=== PATIENT | female | born 1935 | race Caucasian/White ===

== ENCOUNTER 2022-04-08 20:49 | Observation (INO) | payer MEDICARE ==
[~2022-04-08] VITALS: Ht 150 cm; Wt 65.8 kg
[2022-04-08] MEDS ORDERED: fentaNYL INJ 100 MCG/2 ML AMP IVP ONE (21:00)
[2022-04-08 21:11] LABS: BASOPHILS % (AUTO) 1 % (0-10); EOSINOPHILS # (AUTO) 0.3 10^3/uL (0.0-0.3); EOSINOPHILS % (AUTO) 5 % (0-10); HEMATOCRIT 36 % (35-52); HEMOGLOBIN 11.5 g/dL (11.5-16.0); LYMPHOCYTES # (AUTO) 1.9 10^3/uL (1.0-4.0); LYMPHOCYTES % (AUTO) 28 % (12-44); MEAN CORPUSCULAR HEMOGLOBIN 31 pg (25-34); MEAN CORPUSCULAR HGB CONC 32 g/dL (32-36); MEAN CORPUSCULAR VOLUME 97 fL (80-99); MEAN PLATELET VOLUME 9.8 fL (9.0-12.2); MONOCYTES # (AUTO) 0.7 10^3/uL (0.0-1.0); MONOCYTES % (AUTO) 10 % (0-12); NEUTROPHILS # (AUTO) 3.8 10^3/uL (1.8-7.8); NEUTROPHILS % (AUTO) 57 % (42-75); PLATELET COUNT 170 10^3/uL (130-400); WHITE BLOOD COUNT 6.6 10^3/uL (4.3-11.0)
[2022-04-08 21:22] LABS: CLARITY,URINE CLOUDY; COLOR,URINE YELLOW; GLUCOSE, URINE (UA) NEGATIVE (NEGATIVE); PROTEIN,URINE NEGATIVE (NEGATIVE)
[2022-04-08 21:23] LABS: BACTERIA,URINE FEW /HPF; BILIRUBIN,URINE NEGATIVE (NEGATIVE); KETONES,URINE NEGATIVE (NEGATIVE); LEUKOCYTE ESTERASE ,URINE 3+ (NEGATIVE); NITRITE,URINE NEGATIVE (NEGATIVE); WBC,URINE TNTC /HPF
[2022-04-08 21:40] LABS: ALBUMIN 3.7 GM/DL (3.2-4.5); BILIRUBIN,TOTAL 0.3 MG/DL (0.1-1.0); CALCIUM 10.1 MG/DL (8.5-10.1); CREATININE SERUM 1.82 MG/DL (0.60-1.30); POTASSIUM 3.8 MMOL/L (3.6-5.0); TOTAL PROTEIN 7.5 GM/DL (6.4-8.2)
[2022-04-08] MEDS ORDERED: LACTATED RINGERS 1,000 ML IV ONE (22:00)
--- NOTE | 2022-04-08 22:06 | Diagnostic Imaging Report ---
EXAMINATION: CT abdomen and pelvis without contrast. TECHNIQUE: Multiple contiguous axial images were obtained through the abdomen and pelvis without the use of intravenous contrast. All CT scans use one or more of the following dose optimizing techniques: automated exposure control, MA and/or KvP adjustment based on patient size and exam type or iterative reconstruction. HISTORY: Low abdominal pain COMPARISON: None available. FINDINGS: Lung bases: Bibasilar dependent atelectasis. Solid organs: The liver is normal. Multiple layering hyperdense stones within the gallbladder. There is no biliary ductal dilation. Pancreas is normal. Spleen is normal. Adrenal glands are normal. There is severe bilateral hydronephrosis and hydroureter to the level of the right lower quadrant urinary diversion. Bowel: Surgical changes of the small bowel without obstruction. There is a moderate amount of stool within the colon. Surgical changes from right lower quadrant urinary diversion. Peritoneum: There is no intraperitoneal free fluid or free air. No suspicious lymphadenopathy. Vasculature: Calcification of the aorta without aneurysm. Musculoskeletal: Degenerative changes of the spine without suspicious osseous lesion or compression fracture. Surgical changes of the right lower quadrant abdominal wall from ostomy and urinary diversion. Pelvis: The uterus and urinary bladder are surgically absent. IMPRESSION: 1. No acute abnormality in the abdomen or pelvis. 2. Severe bilateral hydronephrosis and hydroureter to the level of the right lower quadrant urinary diversion. No visualized obstructing stone. 3. Cholelithiasis. Dictated by: Dictated on workstation # [id number]
--- NOTE | 2022-04-08 22:33 | ED Abdominal Pain ---
General Chief Complaint: Abdominal/GI Problems Stated Complaint: ABD PAIN Nursing Triage Note: TO ED VIA [facility] FROM [facility] WITH C/O ABD PAIN. Source of Information: Patient, Senior Care Records Exam Limitations: No Limitations History of Present Illness Date Seen by Provider: Apr 08, 2022 Time Seen by Provider: 20:53 Initial Comments This 87-year-old woman presents to the emergency room via [facility] with complaints of lower abdominal pain. 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 She has had multiple urinary tract infections in the past several months that were treated at [facility]. She has not been seen at this hospital in many years. She has no vomiting, diarrhea, or constipation. Urostomy output has been plentiful. She is afebrile. She is experiencing waves of intense pain during my assessment. Her urologic procedures were performed at [facility]. Patient has been seeing Dr. Niko Pham at the [facility]. She anticipates transitioning care to Dr. ALBINA Burger but has not yet birdseed by him. Dr. Pahm is moving to the [facility] in [place]. Allergies and Home Medications Allergies Coded Allergies: hydrocodone (Verified Allergy, Unknown, 04/08/22) meperidine (Verified Allergy, Unknown, 04/08/22) phenazopyridine (Verified Allergy, Unknown, 04/08/22) pramipexole (Verified Allergy, Unknown, 04/08/22) propoxyphene (Verified Allergy, Unknown, 04/08/22) Patient Home Medication List Home Medication List Reviewed: Yes Review of Systems Review of Systems Constitutional: no symptoms reported EENTM: No Symptoms Reported Respiratory: No Symptoms Reported Cardiovascular: No Symptoms Reported Gastrointestinal: See HPI Genitourinary: See HPI Musculoskeletal: no symptoms reported Skin: no symptoms reported Psychiatric/Neurological: No Symptoms Reported Endocrine: No Symptoms Reported Past Kxrqswx-Qyczdp-Frgnfl Hx Patient Social History Tobacco Use?: No Substance use?: No Alcohol Use?: No Immunizations Up To Date Influenza Vaccine Up-to-Date: Yes; Up-to-Date Past Medical History Surgery/Hospitalization HX: UROSTOMY O2 AT 2L AT [facility] DM Surgeries: Yes (Urostomy and bladder resection) Bladder Surgery Respiratory: Yes (Uses supplemental oxygen at 2 L per nasal cannula) Cardiac: Yes Hypertension Neurological: Yes (Restless leg syndrome) : No Genitourinary: Yes Renal Failure (Chronic kidney disease) Gastrointestinal: No Musculoskeletal: No Endocrine: Yes Diabetes, Insulin dep HEENT: No Cancer: No Psychosocial: No Integumentary: No Physical Exam Vital Signs Vital Signs - First Documented 04/08/22 20:49 Temp 36.1 Pulse 59 Resp 16 B/P (MAP) 184/72 (109) Pulse Ox 90 O2 Delivery Room Air O2 Flow Rate 2.00 Capillary Refill : Less Than 3 Seconds Height/Weight/BMI Height: '" Weight: lbs. oz. kg; BMI Method: General Appearance: WD/WN, moderate distress HEENT: PERRL/EOMI, normal ENT inspection Neck: normal inspection Respiratory: lungs clear, normal breath sounds, no respiratory distress Cardiovascular: regular rate, rhythm, no edema, no murmur Gastrointestinal: normal bowel sounds, soft; No distended; tenderness (Across the lower abdomen), other (Urostomy intact and containing urine) Extremities: normal inspection, no pedal edema Neurologic/Psychiatric: no motor/sensory deficits, alert, normal mood/affect, oriented x 3 Skin: normal color, warm/dry Progress/Results/Core Measures Results/Orders Lab Results Laboratory Tests Test 04/08/22 21:00 04/08/22 21:04 Range/Units Urine Color YELLOW Urine Clarity CLOUDY Urine pH 6.0 5-9 Urine Specific Candor 1.020 1.016-1.022 Urine Protein NEGATIVE NEGATIVE Urine Glucose (UA) NEGATIVE NEGATIVE Urine Ketones NEGATIVE NEGATIVE Urine Nitrite NEGATIVE NEGATIVE Urine Bilirubin NEGATIVE NEGATIVE Urine Urobilinogen 0.2 < = 1.0 MG/DL Urine Leukocyte Esterase 3+ H NEGATIVE Urine RBC (Auto) 1+ H NEGATIVE Urine RBC 10-25 H /HPF Urine WBC TNTC H /HPF Urine Squamous Epithelial Cells NONE /HPF Urine Crystals NONE /LPF Urine Bacteria FEW H /HPF Urine Casts NONE /LPF Urine Mucus NEGATIVE /LPF Urine Culture Indicated YES White Blood Count 6.6 4.3-11.0 10^3/uL Red Blood Count 3.73 L 3.80-5.11 10^6/uL Hemoglobin 11.5 11.5-16.0 g/dL Hematocrit 36 35-52 % Mean Corpuscular Volume 97 80-99 fL Mean Corpuscular Hemoglobin 31 25-34 pg Mean Corpuscular Hemoglobin Concent 32 32-36 g/dL Red Cell Distribution Width 14.2 10.0-14.5 % Platelet Count 170 130-400 10^3/uL Mean Platelet Volume 9.8 9.0-12.2 fL Immature Granulocyte % (Auto) 0 % Neutrophils (%) (Auto) 57 42-75 % Lymphocytes (%) (Auto) 28 12-44 % Monocytes (%) (Auto) 10 0-12 % Eosinophils (%) (Auto) 5 0-10 % Basophils (%) (Auto) 1 0-10 % Neutrophils # (Auto) 3.8 1.8-7.8 10^3/uL Lymphocytes # (Auto) 1.9 1.0-4.0 10^3/uL Monocytes # (Auto) 0.7 0.0-1.0 10^3/uL Eosinophils # (Auto) 0.3 0.0-0.3 10^3/uL Basophils # (Auto) 0.0 0.0-0.1 10^3/uL Immature Granulocyte # (Auto) 0.0 0.0-0.1 10^3/uL Sodium Level 134 L 135-145 MMOL/L Potassium Level 3.8 3.6-5.0 MMOL/L Chloride Level 101 98-107 MMOL/L Carbon Dioxide Level 22 21-32 MMOL/L Anion Gap 11 5-14 MMOL/L Blood Urea Nitrogen 38 H 7-18 MG/DL Creatinine 1.82 H 0.60-1.30 MG/DL Estimat Glomerular Filtration Rate 27 BUN/Creatinine Ratio 21 Glucose Level 250 H 70-105 MG/DL Calcium Level 10.1 8.5-10.1 MG/DL Corrected Calcium 10.3 H 8.5-10.1 MG/DL Total Bilirubin 0.3 0.1-1.0 MG/DL Aspartate Amino Transf (AST/SGOT) 11 5-34 U/L Alanine Aminotransferase (ALT/SGPT) 15 0-55 U/L Alkaline Phosphatase 138 H 40-136 U/L C-Reactive Protein High Sensitivity 1.99 H 0.00-0.50 MG/DL Total Protein 7.5 6.4-8.2 GM/DL Albumin 3.7 3.2-4.5 GM/DL Lipase 16 8-78 U/L Thyroid Stimulating Hormone (TSH) 3.44 0.35-4.94 UIU/ML Free Thyroxine 1.01 0.70-1.48 NG/DL My Orders Orders - AFUA WASHBURN MD Cbc With Automated Diff (04/08/22 20:55) Comprehensive Metabolic Panel (04/08/22 20:55) Hs C Reactive Protein (04/08/22 20:55) Lipase (04/08/22 20:55) Ed Iv/Invasive Line Start (04/08/22 20:55) Fentanyl Inj (Sublimaze Injection) (04/08/22 21:00) Ua Culture If Indicated (04/08/22 20:58) Urine Culture (04/08/22 21:00) O2 (04/08/22 21:42) Ct Abdomen/Pelvis Wo (04/08/22 21:45) Carvedilol Tablet (Coreg Tablet) (04/08/22 22:54) Gabapentin Capsule/Tablet (Neurontin Cap (04/08/22 23:00) Ropinirole Tablet (Requip Tablet) (04/08/22 23:00) Ciprofloxacin Iv 400mg/200ml (Cipro Iv S (04/08/22 23:00) Medications Given in ED Current Medications Medications Dose Ordered Sig/Gldays Route Start Time Stop Time Status Last Admin Dose Admin Ciprofloxacin/ Dextrose 200 ml @ 200 mls/hr ONCE ONCE IV 04/08/22 23:00 04/08/22 23:59 DC 04/08/22 23:24 200 MLS/HR Fentanyl Citrate 50 mcg ONCE ONCE IVP 04/08/22 21:00 04/08/22 21:01 DC 04/08/22 21:07 50 MCG Gabapentin 300 mg ONCE ONCE PO 04/08/22 23:00 04/08/22 23:01 DC 04/08/22 23:25 300 MG Ropinirole HCl 1 mg ONCE ONCE PO 04/08/22 23:00 04/08/22 23:01 DC 04/08/22 23:26 1 MG Vital Signs/I&O 04/08/22 04/08/22 04/08/22 20:49 20:49 21:04 Temp 36.1 Pulse 59 Resp 16 B/P (MAP) 184/72 (109) Pulse Ox 90 O2 Delivery Room Air Nasal Cannula Nasal Cannula O2 Flow Rate 2.00 2.00 Blood Pressure Mean: 109 Progress Progress Note : Time: 23:08 Progress Note Patient was treated with fentanyl initially and she is pain-free at this time. CT revealed no definite acute pathology. See report for chronic pathology. She has renal failure with unknown baseline. She is being hydrated with normal sa line 500 mL bolus now followed by slightly higher than maintenance fluids overnight. Patient reports Cipro has been used with good success in the past. We will start with Cipro as initial antibiotic therapy here based on successful treatment of recent UTIs. Patient's baseline creatinine is unknown as she has not been seen here in many years. I have written to obtain records from [facility] for her mild recent admission there. Patient's alf paperwork lists Dr. Emerson Burger as her primary care provider, but she has never actually been seen by him. She has been seen and managed by Dr. Niko Pham at [facility]. She plans to eventually transition to Dr. Burger as it Dr. Pham is moving to a [facility] in [place]. Patient has not received her blood pressure medication yet this evening. It appears that she takes carvedilol which has been ordered. Due to her uncontrolled blood pressure, I am also adding thyroid labs to her work-up. Diagnostic Imaging Diagonstic Imaging: CT Plain Films/CT/US/NM/MRI: abdomen, pelvis Comments CT abdomen pelvis viewed by me and report reviewed. See report below: NAME: CATRACHITO LECHUGA [facility] REC#: [id number] PT STATUS: REG ER : 1935 PHYSICIAN: AFUA WASHBURN MD ADMIT DATE: 04/08/22/ER Signed Date of Exam:04/08/22 CT ABDOMEN/PELVIS WO EXAMINATION: CT abdomen and pelvis without contrast. TECHNIQUE: Multiple contiguous axial images were obtained through the abdomen and pelvis without the use of intravenous contrast. All CT scans use one or more of the following dose optimizing techniques: automated exposure control, MA and/or KvP adjustment based on patient size and exam type or iterative reconstruction. HISTORY: Low abdominal pain COMPARISON: None available. FINDINGS: Lung bases: Bibasilar dependent atelectasis. Solid organs: The liver is normal. Multiple layering hyperdense stones within the gallbladder. There is no biliary ductal dilation. Pancreas is normal. Spleen is normal. Adrenal glands are normal. There is severe bilateral hydronephrosis and hydroureter to the level of the right lower quadrant urinary diversion. Bowel: Surgical changes of the small bowel without obstruction. There is a moderate amount of stool within the colon. Surgical changes from right lower quadrant urinary diversion. Peritoneum: There is no intraperitoneal free fluid or free air. No suspicious lymphadenopathy. Vasculature: Calcification of the aorta without aneurysm. Musculoskeletal: Degenerative changes of the spine without suspicious osseous lesion or compression fracture. Surgical changes of the right lower quadrant abdominal wall from ostomy and urinary diversion. Pelvis: The uterus and urinary bladder are surgically absent. IMPRESSION: 1. No acute abnormality in the abdomen or pelvis. 2. Severe bilateral hydronephrosis and hydroureter to the level of the right lower quadrant urinary diversion. No visualized obstructing stone. 3. Cholelithiasis. Dictated by: Dictated on workstation # [id number] Dict: 04/08/222201 Trans: 04/08/222206 [facility] [id number] Interpreted by: JOANIE RUSSELL DO Electronically signed by: JOANIE RUSSELL DO 04/08/222206 Departure Communication (Admissions) Time/Spoke to Admitting Phy: 23:00 Dr. Mejia Impression Primary Impression: Urinary tract infection Qualified Codes: N39.0 - Urinary tract infection, site not specified Additional Impressions: Lower abdominal pain Renal failure Qualified Codes: N19 - Unspecified kidney failure Uncontrolled hypertension Disposition: ADMITTED INPATIENT Condition: Improved Admissions Decision to Admit Reason: Admit from ER (General) Decision to Admit/Date: Apr 08, 2022 Time/Decision to Admit Time: 23:00 Copy Copies To 1: [facility] Copies To 2: SHON BURGER MD, JOSHUA T MD Apr 08, 2022 22:33
[2022-04-08] MEDS ORDERED: rOPINIRole 1 MG (REQUIP) TABLET PO ONE (23:00)
[2022-04-08] MEDS ORDERED: GABAPENTIN 300 MG (NEURONTIN) CAP PO ONE (23:00)
[2022-04-08] MEDS ORDERED: CIPROFLOXACIN IV 400MG/200ML 200 ML IV ONE (23:00)
[2022-04-08] MEDS ORDERED: NS IV 500 ML 500 ML IV ONE (23:15)
[2022-04-09] VITALS (9 sets, daily range): BP systolic 141–205; BP diastolic 51–69
[2022-04-09 01:18] LABS: FREE T4 (FREE THYROXINE) 1.01 NG/DL (0.70-1.48)
[2022-04-09] MEDS ORDERED: fentaNYL INJ 100 MCG/2 ML AMP IV PRN (01:30)
[2022-04-09] MEDS ORDERED: ONDANSETRON 4 MG/2 ML (SDV) Z0FRAN IV PRN (01:30)
[2022-04-09] MEDS: LACTATED RINGERS 1,000 ML IV SCH ×4 (01:34→19:23)
[2022-04-09] MEDS: inSUlin ASPART (NovoLOG) 1 UNIT/0.01 ML (CHARGE PER UNIT) SC SCH ×4 (06:52→21:08)
[2022-04-09 07:05] LABS: BASOPHILS % (AUTO) 0 % (0-10); EOSINOPHILS # (AUTO) 0.2 10^3/uL (0.0-0.3); EOSINOPHILS % (AUTO) 4 % (0-10); HEMATOCRIT 34 % (35-52); LYMPHOCYTES # (AUTO) 1.5 10^3/uL (1.0-4.0); LYMPHOCYTES % (AUTO) 30 % (12-44); MEAN CORPUSCULAR HEMOGLOBIN 31 pg (25-34); MEAN CORPUSCULAR HGB CONC 32 g/dL (32-36); MEAN CORPUSCULAR VOLUME 97 fL (80-99); MEAN PLATELET VOLUME 9.8 fL (9.0-12.2); MONOCYTES # (AUTO) 0.5 10^3/uL (0.0-1.0); MONOCYTES % (AUTO) 9 % (0-12); NEUTROPHILS # (AUTO) 2.8 10^3/uL (1.8-7.8); NEUTROPHILS % (AUTO) 56 % (42-75); PLATELET COUNT 155 10^3/uL (130-400)
[2022-04-09 07:22] LABS: CALCIUM 9.5 MG/DL (8.5-10.1); CREATININE SERUM 1.36 MG/DL (0.60-1.30); POTASSIUM 3.8 MMOL/L (3.6-5.0)
--- NOTE | 2022-04-09 07:58 | History & Physical-Hospitalist ---
History of Present Illness HPI/Chief Complaint Chief complaint: UTI with weakness HPI: This is a 87-year-old female who lives at [facility] and PCP is apparently Dr. Huffman and not [facility] who presented to the ER with severe weakness found to have UTI and dehydration so placed in observation status with empiric IV antibiotics and monitoring closely. is at the bedside. Restarted all home meds. PT and OT consulted and she is walking pretty well with her walker and assistance. Advance diet to regular. Source: patient, family Exam Limitations: clinical condition Date Seen 04/09/22 Time Seen by a Provider: 11:30 Attending Physician Artie Pham MD PCP Admitting Physician: Lauren Mejia DO Attending Physician: Lauren Mejia DO Referring Physician Date of Admission Apr 08, 2022 at 23:00 Home Medications & Allergies Home Medications Reviewed patient Home Medication Reconciliation performed by pharmacy medication reconciliations environmental sampling technician and/or nursing. Patients Allergies have been reviewed. Allergies Allergies Coded Allergies hydrocodone (Verified Allergy, Unknown, 04/08/22) meperidine (Verified Allergy, Unknown, 04/08/22) phenazopyridine (Verified Allergy, Unknown, 04/08/22) pramipexole (Verified Allergy, Unknown, 04/08/22) propoxyphene (Verified Allergy, Unknown, 04/08/22) Past Hspfvkg-Wdyzxt-Ycyful Hx Patient Social History Marrital Status: Employed/Student: retired Tobacco Use?: No Smoking Status: Unknown if Ever Smoked Smokeless Tobacco Frequency: Unknown if Ever Used Use of E-Cig and/or Vaping dev: No Substance use?: No Alcohol Use?: No Pt feels they are or have been: Unable to obtain Current Status status: Unable to obtain status: Unable to obtain Advance Directives: Unable to obtain Communicates: Verbally Primary Language: Mongolian Preferred Spoken Language: Mongolian Is interpretation needed?: No Sensory deficits: Vision impairment Past Medical History Surgeries: Bladder Surgery Atrial Fibrillation, High Cholesterol, Hypertension Dementia Renal Failure (Chronic kidney disease) Diabetes, Insulin dep Review of Systems Constitutional: see HPI, dizziness, malaise, weakness EENTM: no symptoms reported Respiratory: no symptoms reported Cardiovascular: no symptoms reported Gastrointestinal: no symptoms reported Genitourinary: no symptoms reported Musculoskeletal: back pain Skin: no symptoms reported Psychiatric/Neurological: No Symptoms Reported All Other Systems Reviewed Negative Unless Noted: Yes Physical Exam Physical Exam Vital Signs Vital Signs - First Documented 04/08/22 20:49 Temp 36.1 Pulse 59 Resp 16 B/P (MAP) 184/72 (109) Pulse Ox 90 O2 Delivery Room Air O2 Flow Rate 2.00 Capillary Refill : Less Than 3 Seconds Height, Weight, BMI Height: '" Weight: lbs. oz. kg; BMI Method: General Appearance: No Apparent Distress, Chronically ill Eyes: Right Eye Normal Inspection, Right Eye PERRL HEENT: PERRL/EOMI, Normal ENT Inspection, Pharynx Normal, Moist Mucous Membranes Neck: Full Range of Motion, Normal Inspection, Non Tender Respiratory: Chest Non Tender, Lungs Clear, Normal Breath Sounds, No Accessory Muscle Use, No Respiratory Distress Cardiovascular: Regular Rate, Rhythm, No Edema, No Gallop, No JVD, No Murmur, Normal Peripheral Pulses Gastrointestinal: Normal Bowel Sounds, No Organomegaly, No Pulsatile Mass, Non Tender, Soft Back: Normal Inspection, No CVA Tenderness, No Vertebral Tenderness Extremity: Normal Capillary Refill, Normal Inspection, Normal Range of Motion, Non Tender, No Calf Tenderness, No Pedal Edema Neurologic/Psychiatric: Alert, Oriented x3, No Motor/Sensory Deficits, Normal Mood/Affect, coil placer II-XII Norm as Tested, Abnormal Gait, Depressed Affect, Disoriented, Motor Weakness (Generalized) Skin: Normal Color, Warm/Dry Lymphatic: No Adenopathy Results Results/Procedures Labs Laboratory Tests 04/08/22 21:04 04/09/22 06:15 Patient resulted labs reviewed. Assessment/Plan Admission Diagnosis Assessment: Weakness UTI Dehydration Acute kidney injury Atrial fibrillation Debility Advanced age Diabetes Atrial fibrillation? Hypertension Fall risk Plan: Home meds IV fluids IV antibiotics Supportive care Admission Status: Observation Diagnosis/Problems Diagnosis/Problems (1) Urinary tract infection Status: Acute Qualifiers: Urinary tract infection type: site unspecified Hematuria presence: without hematuria Qualified Codes: N39.0 - Urinary tract infection, site not specified (2) Renal failure Status: Acute Qualifiers: Renal failure chronicity: unspecified chronicity Qualified Codes: N19 - Unspecified kidney failure (3) Uncontrolled hypertension Status: Acute LAUREN MEJIA DO Apr 09, 2022 07:58
[2022-04-09] MEDS ORDERED: MELATONIN 3 MG TABLET PO PRN (11:45)
[2022-04-09] MEDS ORDERED: DOCUSATE SODIUM 100 MG (COLACE) CAP PO PRN (11:45)
[2022-04-09] MEDS ORDERED: diphenhydrAMINE 25 MG TAB (BENADRYL) PO PRN (11:45)
[2022-04-09] MEDS ORDERED: ONDANSETRON 4 MG (ZOFRAN) ORAL DISSOLVE TAB PO PRN (11:45)
[2022-04-09] MEDS ORDERED: BISACODYL 10 MG SUPP (DULCOLAX) PR PRN (11:45)
[2022-04-09] MEDS ORDERED: LOPERAMIDE 2 MG (IMODIUM) TABLET PO PRN (11:45)
[2022-04-09] MEDS ORDERED: ONDANSETRON 4 MG/2 ML (SDV) Z0FRAN IVP PRN (11:45)
[2022-04-09] MEDS ORDERED: ALPRAZolam 0.25 MG (XANAX) TAB PO PRN (11:45)
[2022-04-09] MEDS ORDERED: MENTHOL/ZINC OXIDE (CALMOSEPTINE) 113 GM TUBE TP PRN (11:45)
[2022-04-09] MEDS ORDERED: LACTULOSE SYRUP 10GM/15ML (ENULOSE) 30ML UDC PO PRN (11:45)
[2022-04-09] MEDS ORDERED: CALCIUM CARBONATE 500 MG (TUMS) TAB.CHEW PO PRN (11:45)
--- NOTE | 2022-04-09 12:33 | Physical Therapy Evaluation ---
PT Evaluation-General Medical Diagnosis Admission Date Apr 08, 2022 at 23:00 Medical Diagnosis: abdominal pain Onset Date: Apr 08, 2022 Therapy Diagnosis Therapy Diagnosis: mobility deficits Precautions Precautions/Isolations: Fall Prevention, Standard Precautions Weight Bear Status Right Lower Extremity: Right Full Weight Bearing Left Lower Extremity: Left Full Weight Bearing Referral Physician: Roberto Reason for Referral: Evaluation/Treatment Medical History Pertinent Medical History: DM, HTN Additional Medical History renal failure, urostomy, bladder resection Current History ER via EMS from [facility] with c/o abdominal pain. Reviewed History: Yes Social History Home: Assisted Living Current Living Status: Significant Other Entry Into Home: Level Entry Prior Prior Level of Function SCALE: Activities may be completed with or without assistive devices. 7-Shmussnbax-ugsbvar completes the activity by him/herself with no assistance from a helper. 5-Set-up or Clean-up Assistance-helper sets up or cleans up; patient completes a ctivity. Slater assists only prior to or following the activity. 4-Supervision or Touching Assistance-helper provides verbal cues and/or touching/steadying and/or contact guard assistance as patient completes activity. Assistance may be provided throughout the activity or intermittently. 3-Partial/Moderate Assistance-helper does LESS THAN HALF the effort. Slater lifts, holds or supports trunk or limbs, but provides less than half the effort. 2-Substantial/Maximal Assistance-helper does MORE THAN HALF the effort. Slater lifts or holds trunk or limbs and provides more than half the effort. 2-Qxyhtdcla-xnzvob does ALL the effort. Patient does none of the effort to complete the activity. Or, the assistance of 2 or more helpers is required for the patient to complete the activity. If activity was not attempted, code reason: 7-Patient Refused. 9-Not Applicable-not attempted and the patient did not perform the activity before the current illness, exacerbation or injury. 10-Not Attempted due to Environmental Limitations-(lack of equipment, weather restraints, etc.). 88-Not Attempted due to Medical Conditions or Safety Concerns. Bed Mobility: 6 Transfers (B,C,W/C): 6 Gait: 6 Indoor Mobility (Ambulation): Independent Prior Devices Use: Walker pt. states she has a walker but doesn't typically use it. States she frequently pushes around her in his manual w/c. PT Evaluation-Current Subjective Pt. in bed, states she doesn't think there will be anything wrong with her mobility. She denies pain. Pt/Family Goals [facility] Objective Patient Orientation: Person, Place, Time, Situation Attachments: Oxygen, IV urostomy ROM/Strength ROM Upper Extremities WNL ROM Lower Extremities WNL Strength Upper Extremities WNL Strength Lower Extremities Grossly 5/5 Integumentary/Posture Integumentary see nursing notes Bowel Incontinence: No Neuromuscular (Tone, Coordination, Reflexes) kyphotic posture Sensory Vision: Functional Hearing: Functional Sensation Right Upper Extremit: Intact Sensation Left Upper Extremity: Intact Sensation Right Lower Extremit: Intact Sensation Left Lower Extremity: Intact Transfers Sit to Lying (QC): 6 Lying to Sitting/Side of Bed(Q: 6 Sit to Stand (QC): 6 Gait Does the Patient Walk?: Yes Mode of Locomotion: Walk Anticipated Mode of Locomotion: Walk Walk 10 feet (QC): 6 Walk 50 ft with 2 Turns(QC): 6 Distance: 100 ft Gait Assistive Device: FWW Comments/Gait Description pt. is (I) with use of FWW, therapist assist with IV pole only Balance Sitting Static: Good Sitting Dynamic: Good Standing Static: Good Standing Dynamic: Good Assessment/Needs Pt. is an 87 y.o. female who presented to ED with abdominal pain. Pt. is currently (I) with all transfers and steady with ambulation using a FWW. At this time, patient and therapist do not feel additional skilled PT to warranted at this time. Pt. returned to bed with call light and all needs met. Rehab Potential: Good PT Short Term Goals Short Term Goals Time Frame: Apr 09, 2022 Sit to lyin Lying to sitting on side of be: 6 Sit to stand: 6 Walk 10 feet: 6 Walk 50 feet with two turns: 6 PT Plan Treatment/Plan Treatment Plan: Discontinue PT, goals met Treatment Duration: Apr 09, 2022 Frequency: Patient and/or Family Agrees t: Yes evaluation and discharge Time Time In: 1200 Time Out: 1215 DATE: Apr 09, 2022 Total Billed Treatment Time: 15 Total Billed Treatment 1, [facility] 15' KARTIK RAY PT Apr 09, 2022 12:32
[2022-04-09] MEDS ORDERED: ALLO100T PO (13:04)
[2022-04-09] MEDS ORDERED: AMIO100T4 PO (13:06)
[2022-04-09] MEDS ORDERED: ASPI-999 PO (13:07)
[2022-04-09] MEDS ORDERED: ATOR20TA66 PO (13:08)
[2022-04-09] MEDS ORDERED: CARV12.52 PO ×2 (13:09→13:11)
[2022-04-09] MEDS ORDERED: DULO20CA19 PO (13:11)
[2022-04-09] MEDS ORDERED: CLOP75TA28 PO (13:11)
[2022-04-09] MEDS ORDERED: FERR325T18 PO (13:12)
[2022-04-09] MEDS ORDERED: FURO-125 PO (13:13)
[2022-04-09] MEDS ORDERED: MELA1TAB20 PO (13:24)
[2022-04-09] MEDS ORDERED: LEVO112C4 PO (13:24)
[2022-04-09] MEDS ORDERED: ISOS60TA63 PO (13:24)
[2022-04-09] MEDS ORDERED: GLIP5TAB13 PO (13:24)
[2022-04-09] MEDS ORDERED: ROPI2TAB28 PO (13:24)
[2022-04-09] MEDS ORDERED: INSU100V5 SQ (13:24)
[2022-04-09] MEDS ORDERED: GABA-490 PO (13:24)
[2022-04-09] MEDS ORDERED: TRAM50TA3 PO (13:24)
[2022-04-09] MEDS ORDERED: amLODIPine 5 MG (NORVASC) TAB PO NR (16:00)
[2022-04-09] MEDS: GABAPENTIN 400 MG (NEURONTIN) CAP PO SCH (19:15)
[2022-04-09] MEDS: rOPINIRole 1 MG (REQUIP) TABLET PO SCH (19:21)
[2022-04-09] MEDS: ENOXAPARIN INJECTION 30 MG/0.3 ML SYR SC SCH (19:22)
[2022-04-09] MEDS: DULoxetine 20 MG (CYMBALTA) CAP PO SCH (19:22)
[2022-04-09] MEDS ORDERED: CIPROFLOXACIN 400 MG/D5W 200 ML (PRE-MIX) IV SCH (21:00)
[2022-04-09] MEDS: polyethylene glycoL POWDER 17 GM (MIRALAX) PACK PO SCH (21:04)
[2022-04-09] MEDS: SENNA W/DOCUSATE (SENOKOT S) TABLET PO SCH (21:04)
[2022-04-10] MEDS: ACETAMINOPHEN 325 MG TABLET PO PRN (01:12)
[2022-04-10 04:28] VITALS: BP 164/50
[2022-04-10 05:47] LABS: BASOPHILS % (AUTO) 1 % (0-10); EOSINOPHILS # (AUTO) 0.3 10^3/uL (0.0-0.3); EOSINOPHILS % (AUTO) 6 % (0-10); HEMATOCRIT 35 % (35-52); LYMPHOCYTES # (AUTO) 1.5 10^3/uL (1.0-4.0); LYMPHOCYTES % (AUTO) 36 % (12-44); MEAN CORPUSCULAR HEMOGLOBIN 31 pg (25-34); MEAN CORPUSCULAR HGB CONC 31 g/dL (32-36); MEAN CORPUSCULAR VOLUME 98 fL (80-99); MONOCYTES # (AUTO) 0.4 10^3/uL (0.0-1.0); MONOCYTES % (AUTO) 10 % (0-12); NEUTROPHILS % (AUTO) 47 % (42-75); PLATELET COUNT 140 10^3/uL (130-400); WHITE BLOOD COUNT 4.1 10^3/uL (4.3-11.0)
--- NOTE | 2022-04-10 06:04 | Progress Note - Hospitalist ---
Subjective HPI/CC On Admission Date Seen by Provider: Apr 10, 2022 Time Seen by Provider: 11:00 Chief complaint: UTI with weakness HPI: This is a 87-year-old female who lives at [facility] and PCP is apparently Dr. Huffman and not [facility] who presented to the ER with severe weakness found to have UTI and dehydration so placed in observation status with empiric IV antibiotics and monitoring closely. is at the bedside. Restarted all home meds. PT and OT consulted and she is walking pretty well with her walk er and assistance. Advance diet to regular. Subjective/Events-last exam Patient doing well Improved Still weak Check meds and labs Wants to go home soon Review of Systems General: Fatigue, Malaise Objective Exam Vital Signs Vital Signs Date Time Temp Pulse Resp B/P (MAP) Pulse Ox O2 Delivery O2 Flow Rate FiO2 04/10/22 12:00 36.0 57 16 179/65 (103) 95 Nasal Cannula 2.00 Capillary Refill : Less Than 3 Seconds General Appearance: No Apparent Distress, WD/WN, Chronically ill Respiratory: Lungs Clear, Normal Breath Sounds Cardiovascular: Regular Rate, Rhythm Neurologic/Psychiatric: Alert, Oriented x3 Results/Procedures Lab Laboratory Tests 04/10/22 05:30 Patient resulted labs reviewed. Assessment/Plan Assessment and Plan Assess & Plan/Chief Complaint Assessment: Weakness UTI Dehydration Acute kidney injury Atrial fibrillation Debility Advanced age Diabetes Atrial fibrillation? Hypertension Fall risk Urostomy Plan: Home meds Hep-locked IV fluid Change antibiotics to p.o. Supportive care Diagnosis/Problems Diagnosis/Problems (1) Urinary tract infection Status: Acute Qualifiers: Urinary tract infection type: site unspecified Hematuria presence: without hematuria Qualified Codes: N39.0 - Urinary tract infection, site not specified (2) Renal failure Status: Acute Qualifiers: Renal failure chronicity: unspecified chronicity Qualified Codes: N19 - Unspecified kidney failure (3) Uncontrolled hypertension Status: Acute NICANOR MEYER DO Apr 10, 2022 06:04
[2022-04-10] MEDS: LEVOTHYROXINE 112 MCG (LEVOTHROID) TAB PO SCH (06:05)
[2022-04-10 06:06] LABS: POTASSIUM 3.9 MMOL/L (3.6-5.0)
[2022-04-10] MEDS: inSUlin ASPART (NovoLOG) 1 UNIT/0.01 ML (CHARGE PER UNIT) SC SCH ×4 (06:06→21:54)
[2022-04-10 06:07] LABS: CALCIUM 9.5 MG/DL (8.5-10.1)
[2022-04-10 06:09] LABS: TOTAL PROTEIN 5.9 GM/DL (6.4-8.2)
[2022-04-10 06:10] LABS: BILIRUBIN,TOTAL 0.3 MG/DL (0.1-1.0)
[2022-04-10 06:12] LABS: CREATININE SERUM 1.09 MG/DL (0.60-1.30)
[2022-04-10 07:37] VITALS: BP 182/60
[2022-04-10] MEDS ORDERED: NON-FORMULARY MEDICATION 1 EA EA (Melatonin/Pyridoxine HCl (B6) (Melatonin 10 mg Tablet) 1 PO SCH (09:00)
[2022-04-10] MEDS: ALLOPURINOL 100 MG (ZYLOPRIM) TAB PO SCH (09:01)
[2022-04-10] MEDS: rOPINIRole 1 MG (REQUIP) TABLET PO SCH ×2 (09:01→19:55)
[2022-04-10] MEDS: CLOPIDOGREL 75 MG (PLAVIX) TABLET PO SCH (09:02)
[2022-04-10] MEDS: DULoxetine 20 MG (CYMBALTA) CAP PO SCH ×2 (09:02→19:54)
[2022-04-10] MEDS: FERROUS SULF 325 MG (IRON) TAB PO SCH (09:02)
[2022-04-10] MEDS: ASPIRIN 81 MG CHEW (CHILDREN'S ASA) PO SCH (09:03)
[2022-04-10] MEDS: GABAPENTIN 400 MG (NEURONTIN) CAP PO SCH ×3 (09:04→19:54)
[2022-04-10] MEDS: glipiZIDE 5 MG (GLUCOTROL) TAB PO SCH (09:05)
[2022-04-10] MEDS: SENNA W/DOCUSATE (SENOKOT S) TABLET PO SCH ×2 (09:07→19:56)
[2022-04-10] MEDS: amLODIPine 5 MG (NORVASC) TAB PO SCH (09:07)
[2022-04-10] MEDS: polyethylene glycoL POWDER 17 GM (MIRALAX) PACK PO SCH ×2 (09:08→19:55)
[2022-04-10] MEDS: ISOSORBIDE MONONITRATE 60 MG (IMDUR) TAB PO SCH (09:09)
[2022-04-10] MEDS: FUROSEMIDE 20 MG (LASIX) TAB PO SCH ×2 (09:25→12:51)
[2022-04-10] MEDS: AMIODARONE 200 MG (CORDARONE) TAB PO SCH (09:27)
[2022-04-10 12:00] VITALS: BP 179/65
[2022-04-10] MEDS: AUGMENTIN 875 MG TAB (AMOXICILLIN/CLAVULANATE) PO SCH ×2 (12:50→18:23)
[2022-04-10 16:50] VITALS: BP 155/68
[2022-04-10] MEDS: hydrALAZINE (APRESOLINE) 25 MG TAB PO SCH ×2 (17:09→19:54)
[2022-04-10] MEDS: cloNIDine 0.1 MG (CATAPRES) TAB PO PRN (19:54)
[2022-04-10] MEDS: ENOXAPARIN INJECTION 30 MG/0.3 ML SYR SC SCH (19:55)
[2022-04-10 20:50] VITALS: BP 209/86
[2022-04-10 23:27] VITALS: BP 171/62
[2022-04-11] MEDS: cloNIDine 0.1 MG (CATAPRES) TAB PO PRN (00:06)
[2022-04-11 04:22] VITALS: BP 142/70
[2022-04-11] MEDS: ACETAMINOPHEN 325 MG TABLET PO PRN (04:24)
[2022-04-11] MEDS: LEVOTHYROXINE 112 MCG (LEVOTHROID) TAB PO SCH (05:52)
[2022-04-11] MEDS: inSUlin ASPART (NovoLOG) 1 UNIT/0.01 ML (CHARGE PER UNIT) SC SCH ×3 (05:52→12:31)
[2022-04-11 08:19] VITALS: BP 131/64
[2022-04-11] MEDS: ISOSORBIDE MONONITRATE 60 MG (IMDUR) TAB PO SCH (10:15)
[2022-04-11] MEDS: amLODIPine 5 MG (NORVASC) TAB PO SCH (10:16)
[2022-04-11] MEDS: ALLOPURINOL 100 MG (ZYLOPRIM) TAB PO SCH (10:16)
[2022-04-11] MEDS: CLOPIDOGREL 75 MG (PLAVIX) TABLET PO SCH (10:17)
[2022-04-11] MEDS: hydrALAZINE (APRESOLINE) 25 MG TAB PO SCH ×2 (10:17→12:31)
[2022-04-11] MEDS: AMIODARONE 200 MG (CORDARONE) TAB PO SCH (10:17)
[2022-04-11] MEDS: ASPIRIN 81 MG CHEW (CHILDREN'S ASA) PO SCH (10:18)
[2022-04-11] MEDS: rOPINIRole 1 MG (REQUIP) TABLET PO SCH (10:18)
[2022-04-11] MEDS: FERROUS SULF 325 MG (IRON) TAB PO SCH (10:18)
[2022-04-11] MEDS: AUGMENTIN 875 MG TAB (AMOXICILLIN/CLAVULANATE) PO SCH (10:18)
[2022-04-11] MEDS: GABAPENTIN 400 MG (NEURONTIN) CAP PO SCH ×2 (10:18→12:31)
[2022-04-11] MEDS: glipiZIDE 5 MG (GLUCOTROL) TAB PO SCH (10:18)
[2022-04-11] MEDS: DULoxetine 20 MG (CYMBALTA) CAP PO SCH (10:18)
[2022-04-11] MEDS: SENNA W/DOCUSATE (SENOKOT S) TABLET PO SCH (10:19)
[2022-04-11] MEDS: polyethylene glycoL POWDER 17 GM (MIRALAX) PACK PO SCH (10:22)
[2022-04-11] MEDS: FUROSEMIDE 20 MG (LASIX) TAB PO SCH (10:40)
[2022-04-11] MEDS ORDERED: CLN.1T PO ×2 (11:17→11:37)
[2022-04-11] MEDS ORDERED: AMLO-250 PO ×2 (11:17→11:37)
[2022-04-11] MEDS ORDERED: HYDR-3923 PO ×2 (11:17→11:37)
[2022-04-11] MEDS ORDERED: AMOX1TAB12 PO ×2 (11:17→11:37)
--- NOTE | 2022-04-11 11:18 | Discharge Summary ---
Discharge Summary Hospital Course Was the Problem List Reviewed?: Yes Problems/Dx: (1) Urinary tract infection Status: Acute Qualifiers: Qualified Codes: N39.0 - Urinary tract infection, site not specified (2) Renal failure Status: Acute Qualifiers: Qualified Codes: N19 - Unspecified kidney failure (3) Uncontrolled hypertension Status: Acute Hospital Course Date of Admission: Apr 08, 2022 at 23:00 Admission Diagnosis : Family Physician/Provider: Artie Pham MD Date of Discharge: 04/11/22 Discharge Diagnosis: [ ] Hospital Course: Typical hospital course after she was admitted for UTI with history of urostomy 22 years ago in addition to hypertension [id number]-yqmyalh and delirium. She was placed on broad-spectrum antibiotics. Blood pressure was much improved on addition of multiple medications including hydralazine 3 times daily and Norvasc and she was deemed stable for discharge in improved condition. Labs and Pending Lab Test: Laboratory Tests 04/10/22 11:46: Glucometer 119H 04/10/22 13:44: Glucometer 146H 04/10/22 21:35: Glucometer 156H 04/11/22 05:48: Glucometer 124H Microbiology 04/08/22 Urine Culture - Preliminary, Resulted Staphylococcus aureus Mixed Bacterial [place] Home Meds Active Amlodipine Besylate 5 Mg Tablet 5 Mg PO DAILY Hydralazine HCl 25 Mg Tablet 25 Mg PO TID Clonidine HCl 0.1 Mg Tablet 0.1 Mg PO Q4H PRN Amox Tr-K Clv 875-125 mg Tab (Amoxicillin/Potassium Clav) 875 Mg-125 Mg Tablet 875 Mg PO BID WITH MEALS Tramadol HCl 50 Mg Tablet 50 Mg PO Q4H Ropinirole HCl 2 Mg Tab.er.24h 1.5 Mg PO BID Melatonin 10 mg Tablet (Melatonin/Pyridoxine HCl (B6)) 10 Mg-10 Mg Tab.mphase 1 Each PO DAILY Levothyroxine (Levothyroxine Sodium) 112 Mcg Capsule 112 Mcg PO DAILY Levemir (Insulin Determir) 100 Unit/Ml Soln 5 Units SQ HS Isosorbide Mononitrate ER (Isosorbide Mononitrate) 60 Mg Tab 60 Mg PO DAILY Glipizide 5 Mg Tablet 2.5 Mg PO DAILY Gabapentin 400 Mg Capsule 400 Mg PO TID Lasix (Furosemide) 20 Mg Tablet 20 Mg PO DAILY Ferrous Sulfate 325 Mg (65 Mg Iron) Tablet 325 Mg PO DAILY Duloxetine HCl 20 Mg Capsule.dr 20 Mg PO BID Clopidogrel (Clopidogrel Bisulfate) 75 Mg Tablet 75 Mg PO DAILY Coreg (Carvedilol) 12.5 Mg Tablet 6.25 Mg PO DAILY Atorvastatin Calcium 20 Mg Tablet 20 Mg PO DAILY Aspirin 81 Mg Tab.chew 81 Mg PO DAILY Amiodarone HCl 100 Mg Tablet 100 Mg PO DAILY Allopurinol 100 Mg Tablet 100 Mg PO DAILY Assessment/Pt Instructions PCP in 1 week Discharge Planning: <30 minutes discharge planning Discharge Instructions Discharge Diet: No Restrictions Activity as Tolerated: Yes Discharge Physical Examination Vital Signs Vital Signs Date Time Temp Pulse Resp B/P (MAP) Pulse Ox O2 Delivery O2 Flow Rate FiO2 04/11/22 08:19 35.9 62 18 131/64 (86) 89 Room Air 04/11/22 07:37 2.00 General Appearance: No Apparent Distress, WD/WN Allergies: Coded Allergies: hydrocodone (Verified Allergy, Unknown, 04/08/22) meperidine (Verified Allergy, Unknown, 04/08/22) phenazopyridine (Verified Allergy, Unknown, 04/08/22) pramipexole (Verified Allergy, Unknown, 04/08/22) propoxyphene (Verified Allergy, Unknown, 04/08/22) Discharge Summary Date of Admission Apr 08, 2022 at 23:00 Date of Discharge Discharge Date: Apr 11, 2022 Admission Diagnosis Assessment: Weakness UTI Dehydration Acute kidney injury Atrial fibrillation Debility Advanced age Diabetes Atrial fibrillation? Hypertension Fall risk Plan: Home meds IV fluids IV antibiotics Supportive care Discharge Diagnosis Assessment: Weakness UTI Dehydration Acute kidney injury Atrial fibrillation Debility Advanced age Diabetes Atrial fibrillation? Hypertension Fall risk Urostomy Plan: Home meds Hep-locked IV fluid Change antibiotics to p.o. Supportive care (1) Urinary tract infection Status: Acute Qualifiers: Qualified Codes: N39.0 - Urinary tract infection, site not specified (2) Renal failure Status: Acute Qualifiers: Qualified Codes: N19 - Unspecified kidney failure (3) Uncontrolled hypertension Status: Acute NICANOR MEYER DO Apr 11, 2022 11:18
[2022-04-11 12:51] VITALS: BP 142/68
[2022-04-11 14:15] VITALS: BP 142/68
--- NOTE | 2022-04-11 15:09 | Occupational Therapy Eval ---
OT Evaluation-General/PLF Medical Diagnosis Admission Date Apr 08, 2022 at 23:00 Medical Diagnosis: UTI with weakness Onset Date: Apr 08, 2022 Therapy Diagnosis Therapy Diagnosis: Weakness, Decreased ADL skills Precautions Precautions/Isolations: Fall Prevention, Standard Precautions Weight Bear Status Weight Bearing Restriction: Weight Bearing/Tolerated Referral Physician: Roberto Fitzgerald Reason: Activity Tolerance, Self Care, Evaluation/Treatment, Strengthening/ROM Medical History Pertinent Medical History: Atrial Fib, DM, HTN Additional Medical History Dementia and renal failure Reviewed History: Yes Social History Home: Assisted Living Current Living Status: Significant Other Entry Into Home: Level Entry ADL-Prior Level of Function SCALE: Activities may be completed with or without assistive devices. 3-Dstdxkbsja-jytxyve completes the activity by him/herself with no assistance from a helper. 5-Set-up or Clean-up Assistance-helper sets up or cleans up; patient completes activity. [place] assists only prior to or following the activity. 4-Supervision or Touching Assistance-helper provides verbal cues and/or touching/steadying and/or contact guard assistance as patient completes activity. Assistance may be provided throughout the activity or intermittently. 3-Partial/Moderate Assistance-helper does LESS THAN HALF the effort. [place] lifts, holds or supports trunk or limbs, but provides less than half the effort. 2-Substantial/Maximal Assistance-helper does MORE THAN HALF the effort. [place] lifts or holds trunk or limbs and provides more than half the effort. 6-Uzadmfuxl-hgtsru does ALL the effort. Patient does none of the effort to complete the activity. Or, the assistance of 2 or more helpers is required for the patient to complete the activity. If activity was not attempted, code reason: 7-Patient Refused. 9-Not Applicable-not attempted and the patient did not perform the activity before the current illness, exacerbation or injury. 10-Not Attempted due to Environmental Limitations-(lack of equipment, weather restraints, etc.). 88-Not Attempted due to Medical Conditions or Safety Concerns. ADL PLOF Comments Pt. states that she is independent with daily skills, but has someone that can assist her as needed. Self Care: Unknown Functional Cognition: Unknown DME/Equipment Comments Pt. uses a walker. She lives inside of [facility]. OT Current Status Subjective No pain reported. Appearance Pt. is sitting EOB when therapy entered. Alert and pleasant. Mental Status/Objective Patient Orientation: Person, Place ADL-Treatment Eating (QC): 6 (per pt.) On/Off Footwear (QC): 6 (Independent to doff/don slipper socks.) Pt. has catheter in. Declines having to use toilet for BM. Other Treatments Pt. is able to stand at bedside at walker. However, she attempts to turn and almost loses her balance. She is able to stand after at walker with no LOB. OT adjusts bed and changes padding. Pt. transfers back to bed. All needs met. Pt. with call light. Education OT Patient Education: Correct positioning, Modified ADL techniques, Progress toward Goal/Update tx plan, Purpose of tx/functional activities, Reviewed precautions, Rehab process, Transfer techniques Teaching Recipient: Patient Teaching Methods: Demonstration, Discussion Response to Teaching: Verbalize Understanding, Return Demonstration, Reinforcement Needed OT Group Home Goals Group Home Goals Time Frame: Apr 18, 2022 Eating (QC): 6 Oral Hygiene (QC): 6 Toileting Hygiene (QC): 6 Shower/Bathe Self (QC): 4 Upper Body Dressing (QC): 5 Lower Body Dressing (QC): 4 On/Off Footwear (QC): 6 Additional Goals: 1-Demonstrate ADL Tasks, 2-Verbalize Understanding, 3- ImproveStrength/[place] 1=Demonstrate adherence to instructed precautions during ADL tasks. 2=Patient will verbalize/demonstrate understanding of assistive devices/modifica tions for ADL. 3=Patient will improve strength/tolerance for activity to enable patient to perform ADL's. OT Education/Plan Problem List/Assessment Assessment: Decreased Activ Tolerance, Impaired Self-Care Skills Discharge Recommendations Plan/Recommendations: Continue POC Treatment Plan/Plan of Care Treatment,Training & Education: Yes Patient would benefit from OT for education, treatment and training to promote independence in ADL's, mobility, safety and/or upper extremity function for ADL's. Plan of Care: ADL Retraining, Functional Mobility, UE Funct Exercise/Act Treatment Duration: Apr 18, 2022 Frequency: 3 times per week (3-5x/week) Rehab Potential: Good Time Start Time: 11:45 Stop Time: 11:55 DATE: Apr 11, 2022 Total Time Billed (hr/min): 10 Billed Treatment Time 1, UVALDO KIRAN OT Apr 11, 2022 15:09
== END 2022-04-11 11:15 | disposition home or self-care (01) ==
LOC: EDUNIT# 20:49 → ER 20:53 → 4TH 23:00
PROVIDERS: ADMIT Internal Medicine; ATTEND Internal Medicine
DX: N39.0 Urinary tract infection, site not specified (principal); E86.0 Dehydration; N17.9 Acute kidney failure, unspecified; E11.9 Type 2 diabetes mellitus without complications; I10 Essential (primary) hypertension; Z79.4 Long term (current) use of insulin; Z79.899 Other long term (current) drug therapy
CPT/HCPCS: 74176; 80048; 80053 ×2; 81000; 82947 ×3; 83690; 84439; 84443; 85025 ×3; 86141 ×2; 87077; 87088; 87186; 96366; 96372 ×2; 96376; 97161; 97166; 99283; G0378; 36415

== ENCOUNTER 2022-04-13 15:43 | Emergency (ER) | payer MEDICARE ==
[~2022-04-13] VITALS: Ht 150 cm; Wt 65.0 kg
[~2022-04-13 15:43] MED LIST: ALLO100T PO; AMIO100T4 PO; AMLO-250 PO; AMOX1TAB12 PO; ASPI-999 PO; ATOR20TA66 PO; CARV12.52 PO; CLN.1T PO; CLOP75TA28 PO; DULO20CA19 PO; FERR325T18 PO; FURO-125 PO; GABA-490 PO; GLIP5TAB13 PO; HYDR-3923 PO; INSU100V5 SQ; ISOS60TA63 PO; LEVO112C4 PO; MELA1TAB20 PO; ROPI2TAB28 PO; TRAM50TA3 PO
--- NOTE | 2022-04-13 16:03 | ED Fall/Injury ---
General Chief Complaint: Trauma-Non Activation Stated Complaint: FALL Nursing Triage Note: PT TO ED BY EMS WITH C/O HEAD INJURY. EMS REPORTS PT TRIPPED OVER A WHEELCHAIR, HIT FRONT OF HEAD. PT REPORTS PAIN IN BACK OF HEAD AT THIS TIME. DENIES NECK PAIN, NO LOC, NAUSEA, OR DIZZINESS AT THIS TIME. A&OX4. Source: patient, EMS Exam Limitations: no limitations History of Present Illness Date Seen by Provider: Apr 13, 2022 Time Seen by Provider: 15:47 Initial Comments 88-year-old female presents after a fall from [facility]. Patient states she tripped on the foot of the bed and fell hit her right forehead. Patient is complaining of pain on the left posterior part of her head. Denies loss of consciousness. Patient states she takes aspirin. Reports she has a history of high blood pressure which her primary care provider has been unable to control. States she is on medication for blood pressure. Occurred: just prior to arrival Injuries/Pain Location: head Loss of Consciousness: no loss of consciousness Allergies and Home Medications Allergies Coded Allergies: hydrocodone (Verified Allergy, Unknown, 04/08/22) meperidine (Verified Allergy, Unknown, 04/08/22) phenazopyridine (Verified Allergy, Unknown, 04/08/22) pramipexole (Verified Allergy, Unknown, 04/08/22) propoxyphene (Verified Allergy, Unknown, 04/08/22) Patient Home Medication List Home Medication List Reviewed: Yes Allopurinol (Allopurinol) 100 Mg Tablet, 100 MG PO DAILY Prescribed by: DESMOND HARPER on 04/09/22 1304 Amiodarone HCl (Amiodarone HCl) 100 Mg Tablet, 100 MG PO DAILY Prescribed by: DESMOND HARPER on 04/09/22 1306 Amlodipine Besylate (Amlodipine Besylate) 5 Mg Tablet, 5 MG PO DAILY Prescribed by: NICANOR MEYER on 04/11/22 1137 Amoxicillin/Potassium Clav (Amox Tr-K Clv 875-125 mg Tab) 875 Mg-125 Mg Tablet, 875 MG PO BID WITH MEALS Prescribed by: NICANOR MEYER on 04/11/22 1137 Aspirin (Aspirin) 81 Mg Tab.chew, 81 MG PO DAILY Prescribed by: DESMOND HARPER on 04/09/22 1307 Atorvastatin Calcium (Atorvastatin Calcium) 20 Mg Tablet, 20 MG PO DAILY Prescribed by: DESMOND HARPER on 04/09/22 1308 Carvedilol (Coreg) 12.5 Mg Tablet, 6.25 MG PO DAILY Prescribed by: DESMOND HARPER on 04/09/22 1311 Clonidine HCl (Clonidine HCl) 0.1 Mg Tablet, 0.1 MG PO Q4H PRN for sbp>160 Prescribed by: NICANOR MEYER on 04/11/22 1137 Clopidogrel Bisulfate (Clopidogrel) 75 Mg Tablet, 75 MG PO DAILY Prescribed by: DESMOND HARPER on 04/09/22 1311 Duloxetine HCl (Duloxetine HCl) 20 Mg Capsule.dr, 20 MG PO BID Prescribed by: DESMOND HARPER on 04/09/22 1311 Ferrous Sulfate (Ferrous Sulfate) 325 Mg (65 Mg Iron) Tablet, 325 MG PO DAILY Prescribed by: DESMOND HARPER on 04/09/22 1312 Furosemide (Lasix) 20 Mg Tablet, 20 MG PO DAILY Prescribed by: DESMOND HARPER on 04/09/22 1313 Gabapentin (Gabapentin) 400 Mg Capsule, 400 MG PO TID Prescribed by: DESMOND HARPER on 04/09/22 1324 Glipizide (Glipizide) 5 Mg Tablet, 2.5 MG PO DAILY Prescribed by: DESMOND HARPER on 04/09/22 1324 Hydralazine HCl (Hydralazine HCl) 25 Mg Tablet, 25 MG PO TID Prescribed by: NICANOR MEYER on 04/11/22 1137 Insulin Determir (Levemir) 100 Unit/Ml Soln, 5 UNITS SQ HS Prescribed by: DESMOND HARPER on 04/09/22 1324 Isosorbide Mononitrate (Isosorbide Mononitrate ER) 60 Mg Tab, 60 MG PO DAILY Prescribed by: DESMOND HARPER on 04/09/22 1324 Levothyroxine Sodium (Levothyroxine) 112 Mcg Capsule, 112 MCG PO DAILY Prescribed by: DESMOND HARPER on 04/09/22 1324 Melatonin/Pyridoxine HCl (B6) (Melatonin 10 mg Tablet) 10 Mg-10 Mg Tab.mphase, 1 EACH PO DAILY Prescribed by: DESMOND HARPER on 04/09/22 1324 Ropinirole HCl (Ropinirole HCl) 2 Mg Tab.er.24h, 1.5 MG PO BID Prescribed by: DESMOND HARPER on 04/09/22 1324 Tramadol HCl (Tramadol HCl) 50 Mg Tablet, 50 MG PO Q4H Prescribed by: DESMOND HARPER on 04/09/22 1324 Review of Systems Review of Systems Constitutional: no symptoms reported Eyes: No Symptoms Reported Respiratory: no symptoms reported Cardiovascular: no symptoms reported Psychiatric/Neurological: Headache Past Uoagffl-Jzfkxq-Jaygjx Hx Past Medical History Surgery/Hospitalization HX: UROSTOMY O2 AT 2L AT [facility] DM Surgeries: Yes (Urostomy and bladder resection) Bladder Surgery Respiratory: Yes (Uses supplemental oxygen at 2 L per nasal cannula) Cardiac: Yes Atrial Fibrillation, High Cholesterol, Hypertension Neurological: Yes (Restless leg syndrome) Dementia Genitourinary: Yes Renal Failure Gastrointestinal: No Musculoskeletal: No Endocrine: Yes Diabetes, Insulin dep HEENT: No Cancer: No Psychosocial: No Integumentary: No Physical Exam Vital Signs Vital Signs - First Documented 04/13/22 15:45 Temp 36.6 Pulse 60 Resp 14 B/P (MAP) 190/66 (107) Pulse Ox 95 O2 Delivery Nasal Cannula O2 Flow Rate 2.00 Capillary Refill : Less Than 3 Seconds Height, Weight, BMI Height: '" Weight: lbs. oz. 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 No obvious cranial injuries noted. CT scan of the head ordered due to history of blood thinners. Progress Note #2: Time: 17:[address] result with patient. No acute findings noted. Discussed discharge with patient. Return precautions provided. Blood pressure improved. Diagnostic Imaging Diagonstic Imaging: CT Plain Films/CT/US/NM/MRI: head Comments Date of Exam:04/13/22 CT HEAD/CERVICAL SPINE WO CLINICAL INDICATION: Patient tripped over a wheelchair. Patient hit front of head. Patient has pain in the back of head. EXAM: Head CT without IV contrast with sagittal and coronal reformations. Axial CT scan of the cervical spine with sagittal and coronal reformations. Auto Exposure Controls were utilized during the CT exam to meet ALARA standards for radiation dose reduction. COMPARISON: None. FINDINGS: HEAD CT: There is no evidence of acute cerebral infarct, intracranial hemorrhage, or gross mass effect. The brain parenchymal volume appears appropriate for patient's age. There are patchy and confluent areas of low-attenuation white matter changes seen throughout both cerebral hemispheres, likely representing chronic small vessel ischemic disease and leukoaraiosis. There is normal zhong-white matter distinction. There is no significant midline shift or herniation. There is no evidence of hydrocephalus. The basal cisterns are unremarkable. The skull, extracranial soft tissue, and orbits are unremarkable. The paranasal sinuses are unremarkable. Temporal bones show no significant abnormality. CERVICAL SPINE CT: There is no acute cervical spine fracture. There are degenerative spurs involving the cervical spine and facet arthropathy. There is grade 1 anterolisthesis of C4 on C5 and C5 on C6 which is degenerative. There is no significant neck soft tissue abnormality. The visualized upper lung metz are unremarkable. IMPRESSION: 1: There is no evidence of an acute intracranial process. There is no skull fracture. 2: There is no acute cervical spine fracture. Dictated on workstation # [id number] Dict: 04/13/22 1619 Trans: 04/13/22 1630 [id number] Interpreted by: BJ AGUILAR MD Electronically signed by: Departure Impression Primary Impression: Fall Disposition: 01 HOME, SELF-CARE Condition: Stable Departure-Patient Inst. Decision time for Depature: 17:09 Referrals: ELINA CERON MD (PCP/Family) Primary Care Physician Patient Instructions: Preventing Falls in Older Adults Add. Discharge Instructions: Follow-up with primary care provider. Return for any new or concerning symptoms, dizziness, severe headache, confusion. All discharge instructions reviewed with patient and/or family. Voiced understanding. SILVESTRE LAWS APRN Apr 13, 2022 16:03
--- NOTE | 2022-04-13 16:30 | Diagnostic Imaging Report ---
CLINICAL INDICATION: Patient tripped over a wheelchair. Patient hit front of head. Patient has pain in the back of head. EXAM: Head CT without IV contrast with sagittal and coronal reformations. Axial CT scan of the cervical spine with sagittal and coronal reformations. Auto Exposure Controls were utilized during the CT exam to meet ALARA standards for radiation dose reduction. COMPARISON: None. FINDINGS: HEAD CT: There is no evidence of acute cerebral infarct, intracranial hemorrhage, or gross mass effect. The brain parenchymal volume appears appropriate for patient's age. There are patchy and confluent areas of low-attenuation white matter changes seen throughout both cerebral hemispheres, likely representing chronic small vessel ischemic disease and leukoaraiosis. There is normal zhong-white matter distinction. There is no significant midline shift or herniation. There is no evidence of hydrocephalus. The basal cisterns are unremarkable. The skull, extracranial soft tissue, and orbits are unremarkable. The paranasal sinuses are unremarkable. Temporal bones show no significant abnormality. CERVICAL SPINE CT: There is no acute cervical spine fracture. There are degenerative spurs involving the cervical spine and facet arthropathy. There is grade 1 anterolisthesis of C4 on C5 and C5 on C6 which is degenerative. There is no significant neck soft tissue abnormality. The visualized upper lung metz are unremarkable. IMPRESSION: 1: There is no evidence of an acute intracranial process. There is no skull fracture. 2: There is no acute cervical spine fracture. Dictated by: Dictated on workstation # [id number]
[2022-04-13 17:30] VITALS: BP 167/53
== END 2022-04-13 17:30 | disposition home or self-care (01) ==
LOC: EDUNIT# 15:43 → ER 15:44
DX: S09.90XA Unspecified injury of head, initial encounter (principal); I10 Essential (primary) hypertension; Z79.82 Long term (current) use of aspirin; W01.198A Fall on same level from slipping, tripping and stumbling with subsequent striking against other object, initial encounter
CPT/HCPCS: 70450; 72125; 99283

== ENCOUNTER 2022-06-27 02:41 | Emergency (ER) | payer MEDICARE ==
[~2022-06-27] VITALS: Ht 150 cm; Wt 65.0 kg
[~2022-06-27 02:41] MED LIST changes: -MELA1TAB20 PO; +MELA1TAB72 PO
[2022-06-27 03:10] LABS: ALBUMIN 3.5 GM/DL (3.2-4.5); BASOPHILS % (AUTO) 0 % (0-10); EOSINOPHILS # (AUTO) 0.4 10^3/uL (0.0-0.3); EOSINOPHILS % (AUTO) 3 % (0-10); HEMATOCRIT 36 % (35-52); HEMOGLOBIN 11.2 g/dL (11.5-16.0); LYMPHOCYTES # (AUTO) 1.6 10^3/uL (1.0-4.0); LYMPHOCYTES % (AUTO) 12 % (12-44); MEAN CORPUSCULAR HEMOGLOBIN 30 pg (25-34); MEAN CORPUSCULAR HGB CONC 31 g/dL (32-36); MEAN CORPUSCULAR VOLUME 97 fL (80-99); MEAN PLATELET VOLUME 9.6 fL (9.0-12.2); MONOCYTES # (AUTO) 0.6 10^3/uL (0.0-1.0); MONOCYTES % (AUTO) 5 % (0-12); NEUTROPHILS # (AUTO) 9.8 10^3/uL (1.8-7.8); NEUTROPHILS % (AUTO) 79 % (42-75); PLATELET COUNT 188 10^3/uL (130-400); WHITE BLOOD COUNT 12.5 10^3/uL (4.3-11.0)
[2022-06-27 03:11] LABS: POTASSIUM 4.3 MMOL/L (3.6-5.0)
--- NOTE | 2022-06-27 03:11 | ED Fall/Injury ---
General Chief Complaint: Trauma-Non Activation Stated Complaint: FALL Source: patient, EMS, senior care records History of Present Illness Date Seen by Provider: Jun 27, 2022 Time Seen by Provider: 02:51 Initial Comments PT ARRIVES VIA EMS FROM [facility], WITH MANA SPLINT ON RIGHT LEG PT HAD AN UNWITNESSED FALL, REPORTEDLY JUST PRIOR TO ARRIVAL PT NORMALLY USES A WALKER, BUT WAS NOT USING ONE TONIGHT. PT STATES SHE WAS WALKING AROUND IN HER ROOM, AND FELL. PT STATES SHE WAS UP "DOING PAPERWORK AND PAYING BILLS" --STATES SHE HAS TO GO PAY BILLS TOMORROW, AND WAS WALKING AROUND THE END OF HER BED WHEN SHE FELL SHE C/O PAIN FROM RIGHT HIP TO KNEE. SHE DOES NOT THINK SHE HIT HER HEAD OR HAD LOSS OF CONSCIOUSNESS DENIES NECK OR BACK PAIN DENIES PARESTHESIAS OR MOTOR DEFICITS DENIES CHEST OR ABDOMINAL PAIN DENIES SHORTNESS OF BREATH NO BLEEDING OR OPEN WOUNDS ANYWHERE. PT IS ON PLAVIX AND ASPIRIN SHE HAS HISTORY OF COPD AND WEARS O2 AT 2L/NC AT HS AND PRN DURING THE DAY PT HAS HAD PRIOR CABG AND STENTS, SHE IS INSULIN DEPENDENT DIABETIC SHE HAS RIGHT KNEE REPLACEMENT SHE HAS A PERMANENT UROSTOMY IN PLACE, HAD COMPLETE REMOVAL OF BLADDER SHE HAS BEEN A RESIDENT AT [facility] SINCE 06/11/22. PRIOR TO THAT SHE HAD BEEN LIVING AT [facility] Allergies and Home Medications Allergies Coded Allergies: hydrocodone (Verified Allergy, Unknown, 04/08/22) meperidine (Verified Allergy, Unknown, 04/08/22) phenazopyridine (Verified Allergy, Unknown, 04/08/22) pramipexole (Verified Allergy, Unknown, 04/08/22) propoxyphene (Verified Allergy, Unknown, 04/08/22) Patient Home Medication List Allopurinol (Allopurinol) 100 Mg Tablet, 100 MG PO DAILY Prescribed by: DESMNOD HARPER on 04/09/22 1304 Amiodarone HCl (Amiodarone HCl) 100 Mg Tablet, 100 MG PO DAILY Prescribed by: DESMOND HARPER on 04/09/22 1306 Amlodipine Besylate (Amlodipine Besylate) 5 Mg Tablet, 5 MG PO DAILY Prescribed by: NICANOR MEYER on 04/11/22 1137 Amoxicillin/Potassium Clav (Amox Tr-K Clv 875-125 mg Tab) 875 Mg-125 Mg Tablet, 875 MG PO BID WITH MEALS Prescribed by: NICANOR MEYER on 04/11/22 1137 Aspirin (Aspirin) 81 Mg Tab.chew, 81 MG PO DAILY Prescribed by: DESMOND HARPER on 04/09/22 1307 Atorvastatin Calcium (Atorvastatin Calcium) 20 Mg Tablet, 20 MG PO DAILY Prescribed by: DESMOND HARPER on 04/09/22 1308 Carvedilol (Coreg) 12.5 Mg Tablet, 6.25 MG PO DAILY Prescribed by: DESMOND HARPER on 04/09/22 1311 Clonidine HCl (Clonidine HCl) 0.1 Mg Tablet, 0.1 MG PO Q4H PRN for sbp>160 Prescribed by: NICANOR MEYER on 04/11/22 1137 Clopidogrel Bisulfate (Clopidogrel) 75 Mg Tablet, 75 MG PO DAILY Prescribed by: DESMOND HARPER on 04/09/22 1311 Duloxetine HCl (Duloxetine HCl) 20 Mg Capsule.dr, 20 MG PO BID Prescribed by: DESMOND HARPER on 04/09/22 1311 Ferrous Sulfate (Ferrous Sulfate) 325 Mg (65 Mg Iron) Tablet, 325 MG PO DAILY Prescribed by: DESMOND HARPER on 04/09/22 1312 Furosemide (Lasix) 20 Mg Tablet, 20 MG PO DAILY Prescribed by: DESMOND HARPER on 04/09/22 1313 Gabapentin (Gabapentin) 400 Mg Capsule, 400 MG PO TID Prescribed by: DESMOND HARPER on 04/09/22 1324 Glipizide (Glipizide) 5 Mg Tablet, 2.5 MG PO DAILY Prescribed by: DESMOND HARPER on 04/09/22 1324 Hydralazine HCl (Hydralazine HCl) 25 Mg Tablet, 25 MG PO TID Prescribed by: NICANOR MEYER on 04/11/22 1137 Insulin Determir (Levemir) 100 Unit/Ml Soln, 5 UNITS SQ HS Prescribed by: DESMOND HARPER on 04/09/22 1324 Isosorbide Mononitrate (Isosorbide Mononitrate ER) 60 Mg Tab, 60 MG PO DAILY Prescribed by: DESMOND HARPER on 04/09/22 1324 Levothyroxine Sodium (Levothyroxine) 112 Mcg Capsule, 112 MCG PO DAILY Prescribed by: DESMOND HARPER on 04/09/22 132 Melatonin/Pyridoxine HCl (B6) (Melatonin 10 mg Tablet) 10 Mg-10 Mg Tab.mphase, 1 EACH PO DAILY Prescribed by: DESMOND HARPER on 04/09/221323 Ropinirole HCl (Ropinirole HCl) 2 Mg Tab.er.24h, 1.5 MG PO BID Prescribed by: DESMOND HARPER on 04/09/221323 Tramadol HCl (Tramadol HCl) 50 Mg Tablet, 50 MG PO Q4H Prescribed by: DESMOND HARPER on 04/09/221323 Review of Systems Review of Systems Constitutional: no symptoms reported Eyes: No Symptoms Reported Ears, Nose, Mouth, Throat: no symptoms reported Respiratory: no symptoms reported Cardiovascular: no symptoms reported Gastrointestinal: no symptoms reported Genitourinary: see HPI Musculoskeletal: see HPI Skin: no symptoms reported Psychiatric/Neurological: No Symptoms Reported Past Eocpkez-Vecjpz-Mdmsbm Hx Immunizations Up To Date First/Initial COVID19 Vaccinat: 2020 Second COVID19 Vaccination Gabriel: 2020 Third COVID19 Vaccination Date: 2020 Past Medical History Surgery/Hospitalization HX: HTN, CKD STAGE 3, DM 2 Surgeries: Yes (UROSTOMY; BLADDER REMOVA; R KNEE REPLACEMENT; CABG + STENTS;LOOP RECORDER) Bladder Surgery, Cardiac, CABG, Coronary Stent, Cystectomy, Joint Replacement, Orthopedic Respiratory: Yes (Uses supplemental oxygen at 2 L per nasal cannula) COPD Cardiac: Yes (CABG, STENTS, LOOP RECORDER) Atrial Fibrillation, Coronary Artery Disease, High Cholesterol, Hypertension Neurological: Yes (Restless leg syndrome) 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 oz. kg; 28.00 BMI Method: General Appearance: WD/WN, no apparent distress HEENT: PERRL/EOMI Neck: normal inspection Cardiovascular: irregularly irregular Respiratory: chest non-tender, normal breath sounds, no respiratory distress, no accessory muscle use Gastrointestinal: non tender, soft, other (UROSTOMY IN RLQ-NO SIGNS OF INFECTION) Extremities: normal capillary refill, pedal edema (1+ BILATERALLY), other (TENDERNESS FROM RIGHT HIP TO RIGHT MID THIGH AREA. RIGHT LEG SLIGHTLY SHORTENED AND EXTERNALLY ROTATED, ON REMOVAL OF MANA SPLINT. FOOT IS PINK AND WARM, WITH GOOD CAPILLARY REFILL. DISTAL MOTOR/SENSORY IS INTACT. 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 PT DOES NOT APPEAR CONFUSED. ) Skin: normal color, warm/dry Downs Coma Score Best Eye Response: (4) Open Spontaneously Best Verbal Response: (5) Oriented Best Motor Response: (6) Obeys Commands Downs Total: 15 Progress/Results/Core Measures Results/Orders Lab Results Laboratory Tests Test 06/27/22 02:49 Range/Units White Blood Count 12.5 H 4.3-11.0 10^3/uL Red Blood Count 3.69 L 3.80-5.11 10^6/uL Hemoglobin 11.2 L 11.5-16.0 g/dL Hematocrit 36 35-52 % Mean Corpuscular Volume 97 80-99 fL Mean Corpuscular Hemoglobin 30 25-34 pg Mean Corpuscular Hemoglobin Concent 31 L 32-36 g/dL Red Cell Distribution Width 14.6 H 10.0-14.5 % Platelet Count 188 130-400 10^3/uL Mean Platelet Volume 9.6 9.0-12.2 fL Immature Granulocyte % (Auto) 1 % Neutrophils (%) (Auto) 79 H 42-75 % Lymphocytes (%) (Auto) 12 12-44 % Monocytes (%) (Auto) 5 0-12 % Eosinophils (%) (Auto) 3 0-10 % Basophils (%) (Auto) 0 0-10 % Neutrophils # (Auto) 9.8 H 1.8-7.8 10^3/uL Lymphocytes # (Auto) 1.6 1.0-4.0 10^3/uL Monocytes # (Auto) 0.6 0.0-1.0 10^3/uL Eosinophils # (Auto) 0.4 H 0.0-0.3 10^3/uL Basophils # (Auto) 0.0 0.0-0.1 10^3/uL Immature Granulocyte # (Auto) 0.1 0.0-0.1 10^3/uL Percent Immature Platelet Fraction 1.8 0.0-7.6 % Prothrombin Time 13.3 12.2-14.7 SEC INR Comment 1.0 0.8-1.4 Activated Partial Thromboplast Time 31 24-35 SEC Sodium Level 136 135-145 MMOL/L Potassium Level 4.3 3.6-5.0 MMOL/L Chloride Level 107 98-107 MMOL/L Carbon Dioxide Level 18 L 21-32 MMOL/L Anion Gap 11 5-14 MMOL/L Blood Urea Nitrogen 21 H 7-18 MG/DL Creatinine 1.30 0.60-1.30 MG/DL Estimat Glomerular Filtration Rate 40 BUN/Creatinine Ratio 16 Glucose Level 214 H 70-105 MG/DL Calcium Level 9.8 8.5-10.1 MG/DL Corrected Calcium 10.2 H 8.5-10.1 MG/DL Total Bilirubin 0.3 0.1-1.0 MG/DL Aspartate Amino Transf (AST/SGOT) 18 5-34 U/L Alanine Aminotransferase (ALT/SGPT) 15 0-55 U/L Alkaline Phosphatase 134 40-136 U/L Total Protein 6.9 6.4-8.2 GM/DL Albumin 3.5 3.2-4.5 GM/DL My Orders Orders - LAVINIA RUIZ DO Ed Iv/Invasive Line Start (06/27/22 02:58) O2 (06/27/22 02:58) Monitor-Rhythm Ecg Trace Only (06/27/22 02:58) Ct Head/Cervical Spine Wo (06/27/22 02:58) Chest 1 View, Ap/Pa Only (06/27/22 02:58) Femur, Right, 2 Views (06/27/22 02:58) Pelvis 1 To 2 Views (06/27/22 02:58) Cbc With Automated Diff (06/27/22 02:58) Comprehensive Metabolic Panel (06/27/22 02:58) Protime With Inr (06/27/22 02:58) Partial Thromboplastin Time (06/27/22 02:58) Fentanyl Inj (Sublimaze Injection) (06/27/22 04:00) Morphine Injection (Morphine Injection (06/27/22 04:13) Morphine Injection (Morphine Injection (06/27/22 05:03) Morphine Injection (Morphine Injection (06/27/22 06:15) Medications Given in ED Current Medications Medications Dose Ordered Sig/Gladys Route Start Time Stop Time Status Last Admin Dose Admin Fentanyl Citrate 50 mcg ONCE ONCE IVP 06/27/22 04:00 06/27/22 04:01 DC 06/27/22 03:59 50 MCG Vital Signs/I&O 06/27/22 06/27/22 06/27/22 06/27/22 02:45 02:45 02:45 04:35 Temp 36.6 36.6 Pulse 63 69 Resp 16 16 B/P (MAP) 185/65 (105) 165/59 (94) Pulse Ox 92 95 O2 Delivery Nasal Cannula Nasal Cannula Nasal Cannula Nasal Cannula O2 Flow Rate 4.00 4.00 4.00 4.00 Progress Progress Note : Progress Note MANA SPLINT REMOVED PRIOR TO GOING TO XRAY, AND PT'S CLOTHING AND SHOES ARE IN PLACE AND NEED FOR FULL EXAM OF LEG AND FOOT AND ASSESS NEURO/VASCULAR STATUS. DORSALIS PEDIS AND POSTERIOR TIBIAL PULSES ARE INTACT AND EQUAL BILATERALLY. MOTOR /SENSORY ARE INTACT MANA SPLINT REPLACED ON REVIEW OF XRAYS. RE-ASSESSED AFTER MANA SPLINT REPLACED--PULSES ARE INTACT AND EQUAL, WITH GOOD CAP REFILL, DISTAL SENSORY/VASCULAR INTACT. GIVEN FENTANYL, THEN MORPHINE FOR PAIN VITALS STABLE NO DETERIORATION IN PT'S CONDITION DURING ER STAY REVIEWED PRIOR RECORDS PT'S ONLY ADMIT HERE WAS 04/08-04/11 FOR UTI, AND ER VISIT 04/13 FOR FALL. 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 CORDON, IS THERE, AND WISHES TO BE TRANSFERRED THERE. ADDITIONALLY, THERE IS CURRENTLY NO ORTHOPEDIC COVERAGE HERE AT THIS TIME. 0600--CARE TURNED OVER TO DR. SHEPHERD. TRANSPORT PENDING. Diagnostic Imaging Comments XRAYS--ALL PENDING RADIOLOGIST REVIEW CXR--CARDIOMEGALY, CHRONIC LUNG CHANGES PELVIS--RIGHT SUB TROCH. FRACTURE RIGHT FEMUR-RIGHT SUB TROCH. FRACTURE CT HEAD/CERVICAL SPINE--PER [facility] VIA FAX AT [id number] -NO ACUTE INTRACRANIAL ABNORMALITY -CHRONIC SMALL VESSEL ISCHEMIC CHANGES AND CEREBRAL VOLUME LOSS -NO ACUTE FRACTURE OF CERVICAL SPINE -AGE-INDETERMINATE COMPRESSION DEFORMITIES OF T4 AND T5 VERTEBRAL BODIES Reviewed: Reviewed by Me Departure Communication (Admissions) 035--CALLED [facility]. THEY WILL CALL BACK [phone]--SPOKE WITH DR. OLMEDO, ER PHYSICIAN. ACCEPTS PT FOR TRANSFER TO ER 0417--[facility] IS UNAVAILABLE FOR TRANSFER AT THIS TIME. THEY MAY HAVE TRANSPORT CREW AFTER SHIFT CHANGE AT 0800. RN NOW CALLING OTHER LOCAL EMS SERVICES. 0437--ALL AREA EMS SERVICES HAVE BEEN CONTACTED AND ALL HAVE DECLINED. 0438--CALLED [facility] AND UPDATED THEM WITH THIS INFORMATION REGARDING TRANSFER. MESSAGE LEFT ON MACHINE. 0526--[facility] CALLED BACK, I UPDATED THEM ON TRANSPORTATION ISSUES. Impression Primary Impression: Fall from standing Additional Impressions: Closed fracture of proximal end of right femur Chronic atrial fibrillation IDDM (insulin dependent diabetes mellitus) HTN (hypertension) COPD (chronic obstructive pulmonary disease) Disposition: 02 XFER [facility]-TRM HOSP Condition: Stable Transfer Transfer Reason: Exceeds level of care (ORTHOPEDIC SURGERY, PLUS PT PERFERENCE. ) Transfer Facility: [place], [place] Departure-Patient Inst. Referrals: ELINA CERON MD (PCP/Family) Primary Care Physician LAVINIA RUIZ DO Jun 27, 2022 03:11
[2022-06-27 03:12] LABS: CALCIUM 9.8 MG/DL (8.5-10.1)
[2022-06-27 03:13] LABS: PROTHROMBIN TIME PATIENT 13.3 SEC (12.2-14.7); TOTAL PROTEIN 6.9 GM/DL (6.4-8.2)
[2022-06-27 03:15] LABS: BILIRUBIN,TOTAL 0.3 MG/DL (0.1-1.0)
[2022-06-27 03:17] LABS: CREATININE SERUM 1.3 MG/DL (0.60-1.30)
[2022-06-27] MEDS ORDERED: fentaNYL INJ 100 MCG/2 ML AMP IVP ONE (04:00)
[2022-06-27] MEDS ORDERED: morphine INJ 10 MG/ML 1ML (SYR OR VIAL) IVP STA ×2 (04:13→05:03)
[2022-06-27] MEDS ORDERED: morphine INJ 4 MG/ML 1 ML (VIAL/SYRINGE) IVP ONE (06:15)
[2022-06-27] MEDS ORDERED: morphine INJ 10 MG/ML 1ML (SYR OR VIAL) ONE (06:18)
--- NOTE | 2022-06-27 06:18 | Diagnostic Imaging Report ---
HISTORY: Fall, chest pain TECHNIQUE: Frontal view of the chest COMPARISON: None FINDINGS: Lung volumes are normal. There is mild airspace opacity in the left upper lobe. There is no pleural effusion or pneumothorax. The cardiac silhouette is normal in size. Sternotomy wires and post-CABG changes are seen. A compliance monitor device is noted. There is aortic atherosclerosis. No displaced fractures are seen. IMPRESSION: 1. Left upper lobe airspace opacity, may represent scarring or infiltrate. Dictated by: Dictated on workstation # [id number]
--- NOTE | 2022-06-27 06:21 | Diagnostic Imaging Report ---
HISTORY: Pelvic pain TECHNIQUE: Frontal view of the pelvis COMPARISON: None FINDINGS: There is a comminuted fracture of the proximal right femur with displacement medially and superiorly of the lesser trochanter and extension into the subtrochanteric femur. The femoral shaft is displaced medially and superiorly, with moderate medial angulation. There are mild degenerative changes in the hip joints bilaterally. Bilateral sacroiliac joints are patent. Numerous surgical clips are noted. There are multiple helical coils about the abdomen. There is calcific atherosclerosis. IMPRESSION: 1. Comminuted, displaced and angulated fracture of the proximal right femur. Dictated by: Dictated on workstation # [id number]
--- NOTE | 2022-06-27 06:22 | Diagnostic Imaging Report ---
HISTORY: Right leg pain after fall. TECHNIQUE: 2 views of the right femur COMPARISON: None FINDINGS: There is a comminuted fracture of the proximal right femur in the region of the lesser trochanter with medial and superior displacement of the lesser trochanter. The fracture extends proximally into the intertrochanteric region and distally into the subtrochanteric region. The femoral shaft is displaced medially and superiorly with medial angulation noted. No other fractures are seen in the right femur. There is a right knee arthroplasty. There are multiple surgical clips. There is calcific atherosclerosis. There are metal structures which appear to be external to the patient at the distal thigh. IMPRESSION: 1. Displaced, angulated comminuted fracture of the proximal right femur. Dictated by: Dictated on workstation # [id number]
--- NOTE | 2022-06-27 06:44 | Diagnostic Imaging Report ---
PROCEDURE: CT head and CT cervical spine without contrast. TECHNIQUE: Multiple contiguous axial images were obtained through the brain and cervical spine without the use of intravenous contrast. Sagittal and coronal reformations through the cervical spine were then performed. Auto Exposure Controls were utilized during the CT exam to meet ALARA standards for radiation dose reduction. INDICATION: Head and neck injury, fall, trauma COMPARISON: 04/05/2022 FINDINGS: CT HEAD: Ventricles and cortical sulci diffusely prominent, consistent with generalized parenchymal volume loss. There is no midline shift or mass effect. No acute intracranial hemorrhage is seen. There is no CT evidence of acute territorial ischemia. There are areas of hypoattenuation of the white matter which are likely from chronic microvascular disease. The calvarium appears intact. Paranasal sinuses demonstrate minimal mucosal thickening in the left maxillary sinus, but are otherwise unremarkable. CT CERVICAL SPINE: Alignment of the cervical spine appears normal. There are moderate degenerative changes at C6-C7. Mild degenerative changes are seen elsewhere in the cervical spine. There is marked facet arthropathy at multiple levels. No acute fracture is seen. There may be slight height loss at T1 but this appears stable since the prior study and is likely chronic. There is mild height loss at the superior endplates of T4 and T5, with no retropulsion or definite acute fracture seen. 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 There is scarring in the lung apices as well as atelectasis. There is mild prominence of the interlobular septa. There is aortic atherosclerosis. IMPRESSION: 1. No acute intracranial hemorrhage or calvarium fracture. 2. No acute fracture seen in the cervical spine. 3. Mild height loss at T4 and T5, age indeterminate, but likely chronic. If pain localizes to this region consider MRI to further evaluate. 4. Scarring in the upper lungs with mild prominence of the interlobular septa, can be seen with early edema. No significant changes from the preliminary report. Dictated by: Dictated on workstation # [id number]
[2022-06-27 09:31] VITALS: BP 143/96
== END 2022-06-27 09:31 | disposition short-term general hospital (02) ==
LOC: EDUNIT# 02:41 → ER 02:42
DX: S72.001A Fracture of unspecified part of neck of right femur, initial encounter for closed fracture (principal); J44.9 Chronic obstructive pulmonary disease, unspecified; I12.9 Hypertensive chronic kidney disease with stage 1 through stage 4 chronic kidney disease, or unspecified chronic kidney disease; E11.22 Type 2 diabetes mellitus with diabetic chronic kidney disease; N18.30 Chronic kidney disease, stage 3 unspecified; I48.20 Chronic atrial fibrillation, unspecified; Z99.81 Dependence on supplemental oxygen; Z79.4 Long term (current) use of insulin; Z79.01 Long term (current) use of anticoagulants; Z79.82 Long term (current) use of aspirin; Z95.5 Presence of coronary angioplasty implant and graft; W18.30XA Fall on same level, unspecified, initial encounter; Y93.01 Activity, walking, marching and hiking; Y92.129 Unspecified place in nursing home as the place of occurrence of the external cause
CPT/HCPCS: 36415; 70450; 71045; 72125; 72170; 73552; 80053; 85025; 85610; 85730; 93041

== ENCOUNTER 2022-08-06 21:44 | Emergency (ER) | payer MEDICARE ==
[~2022-08-06] VITALS: Ht 150 cm; Wt 64.0 kg
--- NOTE | 2022-08-06 21:50 | ED General ---
General Stated Complaint: LETHARGIC Source of Information: Patient History of Present Illness Date Seen by Provider: Aug 06, 2022 Time Seen by Provider: 21:46 Initial Comments PT ARRIVES VIA EMS FROM [facility] EMS CALLED FOR PT FOR LETHARGY PT HAD ALL ROUTINE MEDICATIONS, INCLUDING MELATONIN 10 MG AT 2000 TONIGHT NO OTHER COMPLAINTS PT DENIES PAIN ANYWHERE PT DENIES FEELING BAD PT HAS PERMANENT UROSTOMY IN PLACE. SHE HAD FINISHED BACTRIM ANTIBIOTIC EARLIER IN THE MONTH. PT HAS HTN, AND HAS PRN CLONIDINE ORDER--NOT GIVEN TODAY ALSO NOTED THAT HER BP WAS 170'S SYSTOLIC TONIGHT AND HYDRALAZINE WAS HELD TONIGHT. Allergies and Home Medications Allergies Coded Allergies: hydrocodone (Verified Allergy, Unknown, 04/08/22) meperidine (Verified Allergy, Unknown, 04/08/22) phenazopyridine (Verified Allergy, Unknown, 04/08/22) pramipexole (Verified Allergy, Unknown, 04/08/22) propoxyphene (Verified Allergy, Unknown, 04/08/22) Patient Home Medication List Home Medication List Reviewed: Yes Allopurinol (Allopurinol) 100 Mg Tablet, 100 MG PO DAILY Prescribed by: DESMOND HARPER on 04/09/22 1304 Amiodarone HCl (Amiodarone HCl) 100 Mg Tablet, 100 MG PO DAILY Prescribed by: DESMOND HARPER on 04/09/22 1306 Amlodipine Besylate (Amlodipine Besylate) 5 Mg Tablet, 5 MG PO DAILY Prescribed by: NICANOR MEYER on 04/11/22 1137 Amoxicillin/Potassium Clav (Amox Tr-K Clv 875-125 mg Tab) 875 Mg-125 Mg Tablet, 875 MG PO BID WITH MEALS Prescribed by: NICANOR MEYER on 04/11/22 1137 Aspirin (Aspirin) 81 Mg Tab.chew, 81 MG PO DAILY Prescribed by: DESMOND HARPER on 04/09/22 1307 Atorvastatin Calcium (Atorvastatin Calcium) 20 Mg Tablet, 20 MG PO DAILY Prescribed by: DESMOND HARPER on 04/09/22 1308 Carvedilol (Coreg) 12.5 Mg Tablet, 6.25 MG PO DAILY Prescribed by: DESMOND HARPER on 04/09/22 1311 Clonidine HCl (Clonidine HCl) 0.1 Mg Tablet, 0.1 MG PO Q4H PRN for sbp>160 Prescribed by: NICANOR MEYER on 04/11/22 1137 Clopidogrel Bisulfate (Clopidogrel) 75 Mg Tablet, 75 MG PO DAILY Prescribed by: DESMOND HARPER on 04/09/22 1311 Duloxetine HCl (Duloxetine HCl) 20 Mg Capsule.dr, 20 MG PO BID Prescribed by: DESMOND HARPER on 04/09/22 1311 Ferrous Sulfate (Ferrous Sulfate) 325 Mg (65 Mg Iron) Tablet, 325 MG PO DAILY Prescribed by: DESMOND HARPER on 04/09/22 1312 Furosemide (Lasix) 20 Mg Tablet, 20 MG PO DAILY Prescribed by: DESMOND HARPER on 04/09/22 1313 Gabapentin (Gabapentin) 400 Mg Capsule, 400 MG PO TID Prescribed by: DESMOND HARPER on 04/09/22 1324 Glipizide (Glipizide) 5 Mg Tablet, 2.5 MG PO DAILY Prescribed by: DESMOND HARPER on 04/09/22 1324 Hydralazine HCl (Hydralazine HCl) 25 Mg Tablet, 25 MG PO TID Prescribed by: NICANOR MEYER on 04/11/22 1137 Insulin Determir (Levemir) 100 Unit/Ml Soln, 5 UNITS SQ HS Prescribed by: DESMOND HARPER on 04/09/22 1324 Isosorbide Mononitrate (Isosorbide Mononitrate ER) 60 Mg Tab, 60 MG PO DAILY Prescribed by: DESMOND HARPER on 04/09/22 1324 Levothyroxine Sodium (Levothyroxine) 112 Mcg Capsule, 112 MCG PO DAILY Prescribed by: DESMOND HARPER on 04/09/22 1324 Melatonin/Pyridoxine HCl (B6) (Melatonin 10 mg Tablet) 10 Mg-10 Mg Tab.mphase, 1 EACH PO DAILY Prescribed by: DESMOND HARPER on 04/09/22 1324 Ropinirole HCl (Ropinirole HCl) 2 Mg Tab.er.24h, 1.5 MG PO BID Prescribed by: DESMOND HARPER on 04/09/22 1324 Sulfamethoxazole/Trimethoprim (Bactrim Ds Tablet) 1 Each Tablet, 1 EACH PO BID Prescribed by: LAVINIA RUIZ on 08/06/222245 Tramadol HCl (Tramadol HCl) 50 Mg Tablet, 50 MG PO Q4H Prescribed by: DESMOND HARPER on 04/09/22 1324 Review of Systems Review of Systems Constitutional: see HPI Respiratory: no symptoms reported Cardiovascular: no symptoms reported Gastrointestinal: no symptoms reported Genitourinary: see HPI Musculoskeletal: no symptoms reported Psychiatric/Neurological: No Symptoms Reported Past Mufnkgk-Kfvnbs-Oxcsvx Hx Immunizations Up To Date First/Initial COVID19 Vaccinat: 2020 Second COVID19 Vaccination Gabriel: 2020 Third COVID19 Vaccination Date: 2020 Past Medical History Surgery/Hospitalization HX: HTN, CKD STAGE 3, DM 2, UROSTOMY, CABG, HOME O2 AT NOC AND PRN Surgeries: Yes (UROSTOMY; BLADDER REMOVAL; R KNEE REPLACEMENT; CABG + STENTS; LOOP RECORDER) Bladder Surgery, Cardiac, CABG, Coronary Stent, Cystectomy, Joint Replacement, Orthopedic, Urinary Diversion Respiratory: Yes (Uses supplemental oxygen at 2 L per nasal cannula) COPD Cardiac: Yes (CABG, STENTS, LOOP RECORDER) Atrial Fibrillation, Coronary Artery Disease, High Cholesterol, Hypertension Neurological: Yes (Restless leg syndrome) 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 oz. kg; 28.00 BMI Method: General Appearance: No Apparent Distress, WD/WN, Other (DROWSY, BUT WAKENS EASILY. NO ACUTE DISTRESS) HEENT: PERRL/EOMI Neck: Normal Inspection Respiratory: Normal Breath Sounds, No Accessory Muscle Use, No Respiratory Distress Cardiovascular: Regular Rate, Rhythm, Systolic Murmur (2/6) Gastrointestinal: Non Tender, Soft, Other (UROSTOMY IN PLACE, NO SIGNS OF INFECTION. CLEAR URINE IN BAG) Back: No CVA Tenderness Extremity: Normal Capillary Refill, No Pedal Edema Neurologic/Psychiatric: Alert, Oriented x3, No Motor/Sensory Deficits, commutator presser II- XII Norm as Tested Skin: Normal Color, Warm/Dry Progress/Results/Core Measures Suspected Sepsis SIRS Temperature: Pulse: Respiratory Rate: Laboratory Tests 08/06/22 22:00: White Blood Count 6.1 Blood Pressure / Mean: Laboratory Tests 08/06/22 22:00: Creatinine 1.22, Platelet Count 164, Total Bilirubin 0.3 Results/Orders Lab Results Laboratory Tests Test 08/06/22 22:00 Range/Units White Blood Count 6.1 4.3-11.0 10^3/uL Red Blood Count 3.50 L 3.80-5.11 10^6/uL Hemoglobin 10.8 L 11.5-16.0 g/dL Hematocrit 34 L 35-52 % Mean Corpuscular Volume 97 80-99 fL Mean Corpuscular Hemoglobin 31 25-34 pg Mean Corpuscular Hemoglobin Concent 32 32-36 g/dL Red Cell Distribution Width 14.6 H 10.0-14.5 % Platelet Count 164 130-400 10^3/uL Mean Platelet Volume 9.2 9.0-12.2 fL Immature Granulocyte % (Auto) 1 % Neutrophils (%) (Auto) 65 42-75 % Lymphocytes (%) (Auto) 25 12-44 % Monocytes (%) (Auto) 6 0-12 % Eosinophils (%) (Auto) 4 0-10 % Basophils (%) (Auto) 0 0-10 % Neutrophils # (Auto) 3.9 1.8-7.8 10^3/uL Lymphocytes # (Auto) 1.5 1.0-4.0 10^3/uL Monocytes # (Auto) 0.4 0.0-1.0 10^3/uL Eosinophils # (Auto) 0.2 0.0-0.3 10^3/uL Basophils # (Auto) 0.0 0.0-0.1 10^3/uL Immature Granulocyte # (Auto) 0.0 0.0-0.1 10^3/uL Urine Color YELLOW Urine Clarity SL CLOUDY Urine pH 6.0 5-9 Urine Specific [place] 1.015 L 1.016-1.022 Urine Protein 2+ H NEGATIVE Urine Glucose (UA) NEGATIVE NEGATIVE Urine Ketones NEGATIVE NEGATIVE Urine Nitrite POSITIVE H NEGATIVE Urine Bilirubin NEGATIVE NEGATIVE Urine Urobilinogen 0.2 < = 1.0 MG/DL Urine Leukocyte Esterase 3+ H NEGATIVE Urine RBC (Auto) TRACE-I H NEGATIVE Urine RBC 2-5 H /HPF Urine WBC 50-100 H /HPF Urine Crystals PRESENT H /LPF Urine Amorphous Sediment MOD LAURYN URATES H /LPF Urine Bacteria LARGE H /HPF Urine Casts NONE /LPF Urine Mucus NEGATIVE /LPF Urine Culture Indicated YES Sodium Level 139 135-145 MMOL/L Potassium Level 4.0 3.6-5.0 MMOL/L Chloride Level 107 98-107 MMOL/L Carbon Dioxide Level 21 21-32 MMOL/L Anion Gap 11 5-14 MMOL/L Blood Urea Nitrogen 24 H 7-18 MG/DL Creatinine 1.22 0.60-1.30 MG/DL Estimat Glomerular Filtration Rate 43 BUN/Creatinine Ratio 20 Glucose Level 118 H 70-105 MG/DL Calcium Level 10.4 H 8.5-10.1 MG/DL Corrected Calcium 10.8 H 8.5-10.1 MG/DL Total Bilirubin 0.3 0.1-1.0 MG/DL Aspartate Amino Transf (AST/SGOT) 11 5-34 U/L Alanine Aminotransferase (ALT/SGPT) 6 0-55 U/L Alkaline Phosphatase 166 H 40-136 U/L Total Protein 7.4 6.4-8.2 GM/DL Albumin 3.5 3.2-4.5 GM/DL My Orders Orders - LAVINIA RUIZ DO Ed Iv/Invasive Line Start (08/06/22 21:46) Monitor-Rhythm Ecg Trace Only (08/06/22 21:46) Cbc With Automated Diff (08/06/22 21:46) Comprehensive Metabolic Panel (08/06/22 21:46) Ua Culture If Indicated (08/06/22 21:46) Urine Culture (08/06/22 22:00) Rx-Trimeth/Sulfameth Ds Tab (Rx-Bactrim/ (08/06/22 22:46) Vital Signs/I&O 08/06/22 21:48 Temp 36.5 Pulse 60 Resp 16 B/P (MAP) Pulse Ox 98 O2 Delivery Nasal Cannula O2 Flow Rate 3.00 Capillary Refill : Progress Note : Progress Note CBC, CHEMISTRIES AND UA ORDERED NORMAL WBC, CHEMISTRIES UNREMARKABLE AND ESSENTIALLY AT BASELINE. VITALS ARE STABLE, WITH BP 150'S SYSTOLIC. PT IS AFEBRILE NO EVIDENCE OF SEPSIS, PT IS AFEBRILE, NORMAL WBC, NO HYPOTENSION OR TACHYCARDIA REVIEWED PRIOR RECORDS URINE CULTURE FROM 04/08/22--MRSA AND STREP MITIS; SENSITIVE TO BACTRIM AND MACROBID, RESISTANT TO PENICILLINS, CEFAZOLIN AND LEVAQUIN. REVIEWED PRIOR RECORDS--PT'S FIRST VISIT AND ONLY ADMIT 03/2022 FOR UTI, 3 OTHER ER VISITS SINCE THEN SHE HAS BEEN A RESIDENT AT [facility] SINCE 06/09/22, PRIOR TO THAT SHE HAD BEEN LIVING AT [facility] DISCUSSED TEST RESULTS, ANTICIPATED COURSE, MEDICATIONS, NEED FOR FOLLOW UP AND RETURN PRECAUTIONS Departure Impression Primary Impression: Urinary tract infection Additional Impressions: PERMANENT UROSTOMY IN PLACE IDDM (insulin dependent diabetes mellitus) HTN (hypertension) Disposition: 01 HOME, SELF-CARE Condition: Stable Departure-Patient Inst. Decision time for Depature: 22:45 Referrals: ELINA CERON MD (PCP/Family) Primary Care Physician Patient Instructions: Urinary Tract Infection, Adult (DC) Add. Discharge Instructions: CONTINUE YOUR REGULAR MEDICATIONS PRESCRIBED FOLLOW UP WITH YOUR DR NEXT WEEK FOR FURTHER CARE Scripts Sulfamethoxazole/Trimethoprim (Bactrim Ds Tablet) 1 Each Tablet 1 EACH PO BID, #30 TAB Prov: LAVINIA RUIZ DO 08/06/22 LAVINIA RUIZ DO Aug 06, 2022 21:50
[2022-08-06 22:15] LABS: BASOPHILS % (AUTO) 0 % (0-10); EOSINOPHILS # (AUTO) 0.2 10^3/uL (0.0-0.3); EOSINOPHILS % (AUTO) 4 % (0-10); HEMATOCRIT 34 % (35-52); HEMOGLOBIN 10.8 g/dL (11.5-16.0); LYMPHOCYTES # (AUTO) 1.5 10^3/uL (1.0-4.0); LYMPHOCYTES % (AUTO) 25 % (12-44); MEAN CORPUSCULAR HEMOGLOBIN 31 pg (25-34); MEAN CORPUSCULAR HGB CONC 32 g/dL (32-36); MEAN CORPUSCULAR VOLUME 97 fL (80-99); MEAN PLATELET VOLUME 9.2 fL (9.0-12.2); MONOCYTES # (AUTO) 0.4 10^3/uL (0.0-1.0); MONOCYTES % (AUTO) 6 % (0-12); NEUTROPHILS # (AUTO) 3.9 10^3/uL (1.8-7.8); NEUTROPHILS % (AUTO) 65 % (42-75); PLATELET COUNT 164 10^3/uL (130-400); WHITE BLOOD COUNT 6.1 10^3/uL (4.3-11.0)
[2022-08-06 22:16] LABS: BILIRUBIN,URINE NEGATIVE (NEGATIVE); CLARITY,URINE SL CLOUDY; COLOR,URINE YELLOW; GLUCOSE, URINE (UA) NEGATIVE (NEGATIVE); KETONES,URINE NEGATIVE (NEGATIVE); LEUKOCYTE ESTERASE ,URINE 3+ (NEGATIVE); NITRITE,URINE POSITIVE (NEGATIVE); PROTEIN,URINE 2+ (NEGATIVE)
[2022-08-06 22:23] LABS: BACTERIA,URINE LARGE /HPF; WBC,URINE 50-100 /HPF
[2022-08-06 22:24] LABS: AMORPHOUS SEDIMENT,UR MOD AMOR URATES /LPF
[2022-08-06 22:31] LABS: ALBUMIN 3.5 GM/DL (3.2-4.5)
[2022-08-06 22:33] LABS: CALCIUM 10.4 MG/DL (8.5-10.1)
[2022-08-06 22:34] LABS: TOTAL PROTEIN 7.4 GM/DL (6.4-8.2)
[2022-08-06 22:36] LABS: BILIRUBIN,TOTAL 0.3 MG/DL (0.1-1.0)
[2022-08-06 22:38] LABS: CREATININE SERUM 1.22 MG/DL (0.60-1.30)
[2022-08-06] MEDS ORDERED: SULF1TAB38 PO (22:46)
[2022-08-06] MEDS ORDERED: RX-TRIMETH/SULFA. 160-800 MG (BACTRIM DS) TAB PPK#2 PO STA (22:46)
== END 2022-08-06 23:47 | disposition home or self-care (01) ==
LOC: EDUNIT# 21:44 → ER 21:46
DX: N39.0 Urinary tract infection, site not specified (principal); I12.9 Hypertensive chronic kidney disease with stage 1 through stage 4 chronic kidney disease, or unspecified chronic kidney disease; E11.22 Type 2 diabetes mellitus with diabetic chronic kidney disease; N18.30 Chronic kidney disease, stage 3 unspecified; J44.9 Chronic obstructive pulmonary disease, unspecified; Z95.1 Presence of aortocoronary bypass graft; Z99.81 Dependence on supplemental oxygen; Z79.4 Long term (current) use of insulin; Z96.0 Presence of urogenital implants
CPT/HCPCS: 36415; 80053; 81000; 85025; 87077; 87088; 93041

== ENCOUNTER → 2022-11-22 | Outpatient (CLI) | payer MEDICARE ==
[~2022-11-22] MED LIST changes: +SULF1TAB38 PO
--- NOTE | 2022-11-22 17:15 | Diagnostic Imaging Report ---
Indication: Pain in the right knee for a year. Time of Exam: 4:58 PM 3 views of the right knee demonstrate postop changes of total knee arthroplasty. The prosthetic elements are unremarkable. No fracture or loosening is identified. Intramedullary jared is noted in the distal femur. Bony structures are intact. There is no joint effusion. IMPRESSION: Postoperative changes. No acute abnormality is detected. Dictated by: Dictated on workstation # [id number]
== END ==
LOC: RAD 16:36
PROVIDERS: ATTEND Internal Medicine
DX: M25.561 Pain in right knee (principal); J96.11 Chronic respiratory failure with hypoxia; J44.9 Chronic obstructive pulmonary disease, unspecified; N18.31 Chronic kidney disease, stage 3a; Z96.651 Presence of right artificial knee joint
CPT/HCPCS: 73562

== ENCOUNTER 2023-01-30 22:33 | Emergency (ER) | payer MEDICARE ==
[~2023-01-30] VITALS: Ht 150 cm; Wt 150.0 kg
[2023-01-30 22:33] VITALS: BP 160/61
[~2023-01-30 22:33] MED LIST changes: -GABA-490 PO; +GABA-491 PO
[2023-01-30] MEDS ORDERED: OXYMETAZOLINE 0.05% NASAL SPRAY 30 ML BTL ONE (22:38)
[2023-01-30] MEDS ORDERED: TRANEXAMIC ACID 100 MG/ML 10 ML INJECTION ONE ×2 (22:38→22:45)
[2023-01-30 22:52] LABS: BASOPHILS % (AUTO) 0 % (0-10); EOSINOPHILS # (AUTO) 0.5 10^3/uL (0.0-0.3); EOSINOPHILS % (AUTO) 7 % (0-10); HEMATOCRIT 36 % (35-52); HEMOGLOBIN 10.6 g/dL (11.5-16.0); LYMPHOCYTES # (AUTO) 2.2 10^3/uL (1.0-4.0); LYMPHOCYTES % (AUTO) 31 % (12-44); MEAN CORPUSCULAR HEMOGLOBIN 28 pg (25-34); MEAN CORPUSCULAR HGB CONC 30 g/dL (32-36); MEAN CORPUSCULAR VOLUME 93 fL (80-99); MEAN PLATELET VOLUME 8.8 fL (9.0-12.2); MONOCYTES # (AUTO) 0.5 10^3/uL (0.0-1.0); MONOCYTES % (AUTO) 7 % (0-12); NEUTROPHILS # (AUTO) 3.9 10^3/uL (1.8-7.8); NEUTROPHILS % (AUTO) 55 % (42-75); PLATELET COUNT 153 10^3/uL (130-400); WHITE BLOOD COUNT 7.1 10^3/uL (4.3-11.0)
--- NOTE | 2023-01-30 23:03 | ED EENT ---
History of Present Illness General Chief Complaint: Nasal Problems Stated Complaint: NOSE BLEED Nursing Triage Note: PT TO RM 5 VIA [facility] FROM [facility] FOR NOSEBLEED INTERMITTENT X3 HRS THAT NURSING STAFF IS UNABLE TO GET STOPPED. EMS REPORTS SPO2 IN 80'S, PT ON HOME O2 VIA NC AT NIGHT. PT DENIES PAIN, TAKES ASA AND PLAVIX. A&OX4. Source: patient (PT WITH DEMENTIA/LIMITED HISTORIAN), EMS History of Present Illness Date Seen by Provider: Jan 30, 2023 Time Seen by Provider: 22:33 Initial Comments PT ARRIVES VIA [facility] PT HAS HAD LEFT SIDED NOSEBLEED FOR THE LAST 3 HOURS NO INJURY PT IS ON ASPIRIN AND PLAVIX--HX OF CAD AND AFIB SHE HAS HTN, AND WEARS HOME O2 AT NIGHT NO PAIN NO DIZZINESS NO HEADACHE NO COLD SYMPTOMS STATES SHE HAS HAD OCCASIONAL NOSEBLEEDS IN THE PAST, BUT NEVER THIS BAD Allergies and Home Medications Allergies Coded Allergies: hydrocodone (Verified Allergy, Unknown, 04/08/22) meperidine (Verified Allergy, Unknown, 04/08/22) phenazopyridine (Verified Allergy, Unknown, 04/08/22) pramipexole (Verified Allergy, Unknown, 04/08/22) propoxyphene (Verified Allergy, Unknown, 04/08/22) Patient Home Medication List Home Medication List Reviewed: Yes Allopurinol (Allopurinol) 100 Mg Tablet, 100 MG PO DAILY Prescribed by: DESMOND HARPER on 04/09/22 1304 Amiodarone HCl (Amiodarone HCl) 100 Mg Tablet, 100 MG PO DAILY Prescribed by: DESMOND HARPER on 04/09/22 1306 Amlodipine Besylate (Amlodipine Besylate) 5 Mg Tablet, 5 MG PO DAILY Prescribed by: NICANOR MEYER on 04/11/22 1137 Amoxicillin/Potassium Clav (Amox Tr-K Clv 875-125 mg Tab) 875 Mg-125 Mg Tablet, 875 MG PO BID WITH MEALS Prescribed by: NICANOR MEYER on 04/11/22 1137 Aspirin (Aspirin) 81 Mg Tab.chew, 81 MG PO DAILY Prescribed by: DESMOND HARPER on 04/09/22 1307 Atorvastatin Calcium (Atorvastatin Calcium) 20 Mg Tablet, 20 MG PO DAILY Prescribed by: DESMOND HARPER on 04/09/22 1308 Carvedilol (Coreg) 12.5 Mg Tablet, 6.25 MG PO DAILY Prescribed by: DESMOND HARPER on 04/09/22 1311 Clonidine HCl (Clonidine HCl) 0.1 Mg Tablet, 0.1 MG PO Q4H PRN for sbp>160 Prescribed by: NICANOR MEYER on 04/11/22 1137 Clopidogrel Bisulfate (Clopidogrel) 75 Mg Tablet, 75 MG PO DAILY Prescribed by: DESMOND HARPER on 04/09/22 1311 Duloxetine HCl (Duloxetine HCl) 20 Mg Capsule.dr, 20 MG PO BID Prescribed by: DESMOND HARPER on 04/09/22 1311 Ferrous Sulfate (Ferrous Sulfate) 325 Mg (65 Mg Iron) Tablet, 325 MG PO DAILY Prescribed by: DESMOND HARPER on 04/09/22 1312 Furosemide (Lasix) 20 Mg Tablet, 20 MG PO DAILY Prescribed by: DESMOND HARPER on 04/09/22 1313 Gabapentin (Gabapentin) 400 Mg Capsule, 400 MG PO TID Prescribed by: DESMOND HARPER on 04/09/22 1324 Glipizide (Glipizide) 5 Mg Tablet, 2.5 MG PO DAILY Prescribed by: DESMOND HARPER on 04/09/22 1324 Hydralazine HCl (Hydralazine HCl) 25 Mg Tablet, 25 MG PO TID Prescribed by: NICANOR MEYER on 04/11/22 1137 Insulin Determir (Levemir) 100 Unit/Ml Soln, 5 UNITS SQ HS Prescribed by: DESMOND HARPER on 04/09/22 1324 Isosorbide Mononitrate (Isosorbide Mononitrate ER) 60 Mg Tab, 60 MG PO DAILY Prescribed by: DESMOND HARPER on 04/09/22 1324 Levothyroxine Sodium (Levothyroxine) 112 Mcg Capsule, 112 MCG PO DAILY Prescribed by: DESMOND HARPER on 04/09/22 1324 Melatonin/Pyridoxine HCl (B6) (Melatonin 10 mg Tablet) 10 Mg-10 Mg Tab.mphase, 1 EACH PO DAILY Prescribed by: DESMOND HARPER on 04/09/22 1324 Ropinirole HCl (Ropinirole HCl) 2 Mg Tab.er.24h, 1.5 MG PO BID Prescribed by: DESMOND HARPER on 04/09/22 1324 Sulfamethoxazole/Trimethoprim (Bactrim Ds Tablet) 1 Each Tablet, 1 EACH PO BID Prescribed by: LAVINIA RUIZ on 08/06/22 2246 Tramadol HCl (Tramadol HCl) 50 Mg Tablet, 50 MG PO Q4H Prescribed by: DESMOND HARPER on 04/09/22 1324 Review of Systems Review of Systems Constitutional: no symptoms reported Nose: see HPI Past Walvcug-Slicrt-Tpwdqj Hx Patient Social History Tobacco Use?: No Use of E-Cig and/or Vaping dev: No Substance use?: No Alcohol Use?: No Immunizations Up To Date First/Initial COVID19 Vaccinat: 2020 Second COVID19 Vaccination Gabriel: 2020 Third COVID19 Vaccination Date: 2020 Past Medical History Surgery/Hospitalization HX: HTN, CKD STAGE 3, DM 2, UROSTOMY, CABG, HOME O2 AT NOC AND PRN Surgeries: Yes (UROSTOMY; BLADDER REMOVAL; R KNEE REPLACEMENT; CABG + STENTS; LOOP RECORDER) Bladder Surgery, Cardiac, CABG, Coronary Stent, Cystectomy, Joint Replacement, Orthopedic, Urinary Diversion Respiratory: Yes (Uses supplemental oxygen at 2 L per nasal cannula) COPD Cardiac: Yes (CABG, STENTS, LOOP RECORDER) Atrial Fibrillation, Coronary Artery Disease, High Cholesterol, Hypertension Neurological: Yes (Restless leg syndrome) 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 oz. kg; 66.00 BMI Method: General Appearance: WD/WN, no apparent distress Nose: other (CLOTTED BLOOD IN LEFT NARE--ANTERIOR SEPTUM. NO ACTIVE BLEEDING AT THIS TIME. SCANT AMOUNT OF BLOOD IN POSTERIOR PHARYNX. ) Respiratory: normal breath sounds Neurologic/Psychiatric: no motor/sensory deficits, alert, normal mood/affect, oriented x 3 (BUT LIMITED MEMORY-PT WITH DEMENTIA) Skin: normal color, warm/dry Procedures/Interventions Nasal : Nasal Location: Left Inspection with: Otoscope Nasal Procedures: Merocel Sponge Progress UNABLE TO PASS 4.5 CM RAPID RHINO PARTIALLY ABLE TO PASS SMALL MEROCEL NASAL SPONGE PACKING, SATURATED WITH TXA. PT OBSERVED IN ER NO FURTHER BLEEDING NOTED. Progress/Results/Core Measures Results/Orders Lab Results Laboratory Tests Test 01/30/23 22:43 Range/Units White Blood Count 7.1 4.3-11.0 10^3/uL Red Blood Count 3.85 3.80-5.11 10^6/uL Hemoglobin 10.6 L 11.5-16.0 g/dL Hematocrit 36 35-52 % Mean Corpuscular Volume 93 80-99 fL Mean Corpuscular Hemoglobin 28 25-34 pg Mean Corpuscular Hemoglobin Concent 30 L 32-36 g/dL Red Cell Distribution Width 14.7 H 10.0-14.5 % Platelet Count 153 130-400 10^3/uL Mean Platelet Volume 8.8 L 9.0-12.2 fL Immature Granulocyte % (Auto) 0 % Neutrophils (%) (Auto) 55 42-75 % Lymphocytes (%) (Auto) 31 12-44 % Monocytes (%) (Auto) 7 0-12 % Eosinophils (%) (Auto) 7 0-10 % Basophils (%) (Auto) 0 0-10 % Neutrophils # (Auto) 3.9 1.8-7.8 10^3/uL Lymphocytes # (Auto) 2.2 1.0-4.0 10^3/uL Monocytes # (Auto) 0.5 0.0-1.0 10^3/uL Eosinophils # (Auto) 0.5 H 0.0-0.3 10^3/uL Basophils # (Auto) 0.0 0.0-0.1 10^3/uL Immature Granulocyte # (Auto) 0.0 0.0-0.1 10^3/uL Prothrombin Time 14.8 H 12.2-14.7 SEC INR Comment 1.1 0.8-1.4 Activated Partial Thromboplast Time 34 24-35 SEC Sodium Level 140 135-145 MMOL/L Potassium Level 4.1 3.6-5.0 MMOL/L Chloride Level 109 H 98-107 MMOL/L Carbon Dioxide Level 21 21-32 MMOL/L Anion Gap 10 5-14 MMOL/L Blood Urea Nitrogen 16 7-18 MG/DL Creatinine 1.08 0.60-1.30 MG/DL Estimat Glomerular Filtration Rate 50 BUN/Creatinine Ratio 15 Glucose Level 114 H 70-105 MG/DL Calcium Level 9.8 8.5-10.1 MG/DL My Orders Orders - LAVINIA RUIZ DO Monitor-Rhythm Ecg Trace Only (01/30/23 22:35) Basic Metabolic Panel (01/30/23 22:35) Cbc And Automated Diff (01/30/23 22:35) Protime With Inr (01/30/23 22:35) Partial Thromboplastin Time (01/30/23 22:35) Oxymetazoline 0.05% Nasal [place] (Oxymetaz (01/31/23 09:00) Tranexamic Acid Injection (Tranexamic Ac (01/30/23 22:45) Tranexamic Acid Injection (Tranexamic Ac (01/30/23 22:38) Oxymetazoline 0.05% Nasal [place] (Oxymetaz (01/30/23 22:38) Medications Given in ED Current Medications Medications Dose Ordered Sig/Gladys Route Start Time Stop Time Status Last Admin Dose Admin Tranexamic Acid ONCE ONCE NA 01/30/23 22:45 01/30/23 22:46 DC 01/30/23 22:41 1,000 MG Vital Signs/I&O 01/30/23 22:33 Temp 36.5 Pulse 71 Resp 20 B/P (MAP) 160/61 (94) Pulse Ox 94 O2 Delivery Nasal Cannula O2 Flow Rate 2.00 Blood Pressure Mean: 94 Progress Progress Note : Progress Note VITALS ON ARRIVAL: TEMP 36.5=97.7, HR 71, RR 20, BP 160/61, O2 SAT 94% ON 2L/NC LABS: -CBC WITH HGB 10.6--LAST HGB HERE IN JULY OF THIS YEAR WAS 10.8; PLT NORMAL -BMP NORMAL -PT/PTT/INR NORMAL PACKING PLACED PT OBSERVED IN ER FOR OVER AN HOUR NO FURTHER BLEEDING DISCUSSED TEST RESULTS, ANTICIPATED COURSE, SYMPTOMATIC TREATMENT, NEED FOR FOLLOW UP AND RETURN PRECAUTIONS Departure Impression Primary Impression: Epistaxis Disposition: 03 XFER SNF Condition: Stable Departure-Patient Inst. Decision time for Depature: 23:25 Referrals: JESSICA WANG MD, BENJAMEN H MD (PCP/Family) Primary Care Physician Patient Instructions: Nosebleeds ED Add. Discharge Instructions: LEAVE NASAL PACKING IN PLACE FOLLOW UP WITH DR. WANG, ENT, THIS WEEK FOR FURTHER CARE CONTINUE YOUR REGULAR MEDICATIONS PRESCRIBED All discharge instructions reviewed with patient and/or family. Voiced understanding. LAVINIA RUIZ DO Jan 30, 2023 23:03
[2023-01-30 23:04] LABS: POTASSIUM 4.1 MMOL/L (3.6-5.0)
[2023-01-30 23:05] LABS: CALCIUM 9.8 MG/DL (8.5-10.1)
[2023-01-30 23:06] LABS: INR 1.1 (0.8-1.4); PROTHROMBIN TIME PATIENT 14.8 SEC (12.2-14.7)
[2023-01-30 23:10] LABS: CREATININE SERUM 1.08 MG/DL (0.60-1.30)
[2023-01-31] MEDS ORDERED: OXYMETAZOLINE 0.05% NASAL SPRAY 30 ML BTL SCH (09:00)
== END 2023-01-31 00:04 ==
LOC: EDUNIT# 22:33 → ER 22:34
DX: R04.0 Epistaxis (principal); I48.91 Unspecified atrial fibrillation; I25.10 Atherosclerotic heart disease of native coronary artery without angina pectoris; Z79.01 Long term (current) use of anticoagulants; Z79.02 Long term (current) use of antithrombotics/antiplatelets
CPT/HCPCS: 36415; 80048; 85025; 85610; 85730; 93041

== ENCOUNTER 2023-02-11 19:32 | Emergency (ER) | payer MEDICARE ==
[~2023-02-11] VITALS: Ht 119.4 cm; Wt 71.2 kg
[2023-02-11] MEDS ORDERED: TRANEXAMIC ACID 100 MG/ML 10 ML INJECTION ONE (19:45)
--- NOTE | 2023-02-11 20:00 | ED EENT ---
History of Present Illness General Chief Complaint: Nasal Problems Stated Complaint: NOSEBLEED Nursing Triage Note: PT A&OX3; PT BROUGHT TO ROOM VIA EMS STRETCHER; PT ADVISES THAT SHE WAS SITTING DOWN AND CROCHETING WHEN SHE HAD A SPONTANEOUS BLOODY NOSE; PT REPORTS THAT LAST WEEK SHE WAS SEEN IN THE ER WITH SAME COMPLAINT; NARE WAS PACKED AND PT WAS REFERRED TO ENT; PT WENT TO HER PCP THIS WEEK WHERE THEY REMOVED THE NASAL PACKING Source: patient, senior living records, old records History of Present Illness Date Seen by Provider: Feb 11, 2023 Time Seen by Provider: 19:35 Initial Comments PT ARRIVES VIA EMS FROM [facility] C/O LEFT SIDED NOSEBLEED THAT BEGAN AROUND 1800 WHILE SITTING NO INJURY NO PAIN NO URI SYMPTOMS PT IS ON PLAVIX AND ASPIRIN AND IS ON CONTINUOUS O2 VIA NASAL CANULA SHE WAS SEEN HERE 01/30/23 FOR THE SAME, AND NOSE WAS PACKED AND SHE WAS ADVISED TO FOLLOW UP WITH DR. WANG, ENT, FOR FURTHER CARE SHE DID NOT FOLLOW UP WITH DR. WANG, AND PT STATES SHE SAW HER PRIMARY CARE LAST WEEK AND HAD PACKING REMOVED THERE. Allergies and Home Medications Allergies Coded Allergies: hydrocodone (Verified Allergy, Unknown, 04/08/22) meperidine (Verified Allergy, Unknown, 04/08/22) phenazopyridine (Verified Allergy, Unknown, 04/08/22) pramipexole (Verified Allergy, Unknown, 04/08/22) propoxyphene (Verified Allergy, Unknown, 04/08/22) Patient Home Medication List Home Medication List Reviewed: Yes Allopurinol (Allopurinol) 100 Mg Tablet, 100 MG PO DAILY Prescribed by: DESMOND HARPER on 04/09/22 1304 Amiodarone HCl (Amiodarone HCl) 100 Mg Tablet, 100 MG PO DAILY Prescribed by: DESMOND HARPER on 04/09/22 1306 Amlodipine Besylate (Amlodipine Besylate) 5 Mg Tablet, 5 MG PO DAILY Prescribed by: NICANOR MEYER on 04/11/22 1137 Amoxicillin/Potassium Clav (Amox Tr-K Clv 875-125 mg Tab) 875 Mg-125 Mg Tablet, 875 MG PO BID WITH MEALS Prescribed by: NICANOR MEYER on 04/11/22 1137 Aspirin (Aspirin) 81 Mg Tab.chew, 81 MG PO DAILY Prescribed by: DESMOND HARPER on 04/09/22 1307 Atorvastatin Calcium (Atorvastatin Calcium) 20 Mg Tablet, 20 MG PO DAILY Prescribed by: DESMOND HARPER on 04/09/22 1308 Carvedilol (Coreg) 12.5 Mg Tablet, 6.25 MG PO DAILY Prescribed by: DESMOND HARPER on 04/09/22 1311 Cefuroxime Axetil (Cefuroxime) 500 Mg Tablet, 500 MG PO BID Prescribed by: LAVINIA RUIZ on 02/11/232032 Clonidine HCl (Clonidine HCl) 0.1 Mg Tablet, 0.1 MG PO Q4H PRN for sbp>160 Prescribed by: NICANOR MEYER on 04/11/22 1137 Clopidogrel Bisulfate (Clopidogrel) 75 Mg Tablet, 75 MG PO DAILY Prescribed by: DESMOND HARPER on 04/09/22 1311 Duloxetine HCl (Duloxetine HCl) 20 Mg Capsule.dr, 20 MG PO BID Prescribed by: DESMOND HARPER on 04/09/22 1311 Ferrous Sulfate (Ferrous Sulfate) 325 Mg (65 Mg Iron) Tablet, 325 MG PO DAILY Prescribed by: DESMOND HARPER on 04/09/22 1312 Furosemide (Lasix) 20 Mg Tablet, 20 MG PO DAILY Prescribed by: DESMOND HARPRE on 04/09/22 1313 Gabapentin (Gabapentin) 400 Mg Capsule, 400 MG PO TID Prescribed by: DESMOND HARPER on 04/09/22 1324 Glipizide (Glipizide) 5 Mg Tablet, 2.5 MG PO DAILY Prescribed by: DESMOND HARPER on 04/09/22 1324 Hydralazine HCl (Hydralazine HCl) 25 Mg Tablet, 25 MG PO TID Prescribed by: NICANOR MEYER on 04/11/22 1137 Insulin Determir (Levemir) 100 Unit/Ml Soln, 5 UNITS SQ HS Prescribed by: DESMOND HARPER on 04/09/22 1324 Isosorbide Mononitrate (Isosorbide Mononitrate ER) 60 Mg Tab, 60 MG PO DAILY Prescribed by: DESMOND HARPER on 04/09/22 1324 Levothyroxine Sodium (Levothyroxine) 112 Mcg Capsule, 112 MCG PO DAILY Prescribed by: DESMOND HARPER on 04/09/22 1324 Melatonin/Pyridoxine HCl (B6) (Melatonin 10 mg Tablet) 10 Mg-10 Mg Tab.mphase, 1 EACH PO DAILY Prescribed by: DESMOND HARPER on 04/09/22 1324 Ropinirole HCl (Ropinirole HCl) 2 Mg Tab.er.24h, 1.5 MG PO BID Prescribed by: DESMOND HARPER on 04/09/22 1324 Sulfamethoxazole/Trimethoprim (Bactrim Ds Tablet) 1 Each Tablet, 1 EACH PO BID Prescribed by: LAVINIA RUIZ on 08/06/22 2246 Tramadol HCl (Tramadol HCl) 50 Mg Tablet, 50 MG PO Q4H Prescribed by: DESMOND HARPER on 04/09/22 1324 Review of Systems Review of Systems Constitutional: no symptoms reported Nose: see HPI Past Oofwxzp-Uxkphw-Cluwqw Hx Patient Social History Tobacco Use?: No Use of E-Cig and/or Vaping dev: No Substance use?: No Alcohol Use?: No Pt feels they are or have been: No Immunizations Up To Date Influenza Vaccine Up-to-Date: No; Not Current First/Initial COVID19 Vaccinat: 2021 Second COVID19 Vaccination Gabriel: 2021 Third COVID19 Vaccination Date: 2020 Past Medical History Surgery/Hospitalization HX: HTN, CKD STAGE 3, DM 2, UROSTOMY, CABG, HOME O2 AT NOC AND PRN Surgeries: Yes (UROSTOMY; BLADDER REMOVAL; R KNEE REPLACEMENT; CABG + STENTS; LOOP RECORDER) Bladder Surgery, Cardiac, CABG, Coronary Stent, Cystectomy, Joint Replacement, Orthopedic, Urinary Diversion Respiratory: Yes (Uses supplemental oxygen at 2 L per nasal cannula) COPD Cardiac: Yes (CABG, STENTS, LOOP RECORDER) Atrial Fibrillation, Coronary Artery Disease, High Cholesterol, Hypertension Neurological: Yes (Restless leg syndrome) Dementia [employer] History: Menopausal Genitourinary: Yes (UROSTOMY WITH BLADDER RESECTION/REMOVAL; ) Renal Failure, UTI-Chronic Gastrointestinal: No Musculoskeletal: Yes (RIGHT KNEE REPLACEMENT) Arthritis Endocrine: Yes Diabetes, Insulin dep HEENT: No (DENTURES) Cancer: No Psychosocial: No Integumentary: No Blood Disorders: No Physical Exam Vital Signs Vital Signs - First Documented 02/11/23 19:37 Temp 36.6 Pulse 68 Resp 16 B/P (MAP) 156/89 (111) Pulse Ox 93 O2 Delivery Nasal Cannula O2 Flow Rate 2.00 Height, Weight, BMI Height: '" Weight: lbs. oz. kg; 49.00 BMI Method: General Appearance: WD/WN, no apparent distress Nose: other (LEFT SIDED NOSEBLEED--APPEARS TO BE FROM ANTERIOR NASAL SEPTUM) Mouth/Throat: other (CLOTTED BLOOD IN POSTERIOR PHARYNX) Respiratory: normal breath sounds, no respiratory distress, no accessory muscle use Procedures/Interventions Nasal : Nasal Location: Left Clots Cleared from Nasal: Patient Blowing Inspection with: Otoscope Nasal Procedures: Merocel Sponge (4.5 CM--SATURATED WITH TXA) Progress/Results/Core Measures Results/Orders Lab Results Laboratory Tests Test 02/11/23 19:48 Range/Units White Blood Count 5.7 4.3-11.0 10^3/uL Red Blood Count 3.82 3.80-5.11 10^6/uL Hemoglobin 10.6 L 11.5-16.0 g/dL Hematocrit 35 35-52 % Mean Corpuscular Volume 92 80-99 fL Mean Corpuscular Hemoglobin 28 25-34 pg Mean Corpuscular Hemoglobin Concent 30 L 32-36 g/dL Red Cell Distribution Width 14.7 H 10.0-14.5 % Platelet Count 161 130-400 10^3/uL Mean Platelet Volume 9.0 9.0-12.2 fL Prothrombin Time 14.7 12.2-14.7 SEC INR Comment 1.1 0.8-1.4 Activated Partial Thromboplast Time 36 H 24-35 SEC My Orders Orders - LAVINIA RUIZ DO Cbc No Diff (02/11/23 19:37) Protime With Inr (02/11/23 19:37) Partial Thromboplastin Time (02/11/23 19:37) Tranexamic Acid Injection (Tranexamic Ac (02/11/23 19:45) Vital Signs/I&O 02/11/23 02/11/23 19:37 19:54 Temp 36.6 Pulse 68 Resp 16 B/P (MAP) 156/89 (111) Pulse Ox 93 O2 Delivery Nasal Cannula Nasal Cannula O2 Flow Rate 2.00 4.00 Blood Pressure Mean: 111 Progress Progress Note : Progress Note UNABLE TO PASS 4.5 CM RAPID RHINO AT LAST VISIT, AND USED 4.5 CM MEROCEL PACKING INSTEAD AT THAT TIME TODAY, NOSE PACKED WITH 4.5 CM MEROCEL, AND SATURATED WITH TXA. LABS: -CBC WITH HGB 10.6--EXACTLY THE SAME PREVIOUS ER VISIT -PT/PTT/INR NORMAL PT OBSERVED IN ER FOR OVER 1 1/2 HOURS NO FURTHER BLEEDING AND NO FRESH BLOOD IN POSTERIOR PHARYNX DISCUSSED TEST RESULTS, ANTICIPATED COURSE, MEDICATION, NEED FOR FOLLOW UP WITH ENT, AND RETURN PRECAUTIONS REVIEWED PRISON RECORDS, PRIOR ER VISITS, TESTS, ETC. Departure Impression Primary Impression: Epistaxis Disposition: SNF Condition: Stable Departure-Patient Inst. Referrals: JESSICA WANG MD, BENJAMEN H MD (PCP/Family) Primary Care Physician Patient Instructions: Nosebleeds ED Add. Discharge Instructions: LEAVE NASAL PACKING IN PLACE CONTINUE YOUR REGULAR MEDICATIONS TAKE ANTIBIOTICS PRESCRIBED FOLLOW UP WITH DR. WANG, ENT PHYSICIAN, THIS COMING WEEK FOR FURTHER CARE--CALL ON MONDAY TO SCHEDULE AN APPOINTMENT All discharge instructions reviewed with patient and/or family. Voiced understanding. Scripts Cefuroxime Axetil (Cefuroxime) 500 Mg Tablet 500 MG PO BID, #14 TAB Prov: LAVINIA RUIZ DO 02/11/23 LAVINIA RUIZ DO Feb 11, 2023 19:59
[2023-02-11 20:04] LABS: HEMATOCRIT 35 % (35-52); HEMOGLOBIN 10.6 g/dL (11.5-16.0); MEAN CORPUSCULAR HEMOGLOBIN 28 pg (25-34); MEAN CORPUSCULAR HGB CONC 30 g/dL (32-36); MEAN CORPUSCULAR VOLUME 92 fL (80-99); PLATELET COUNT 161 10^3/uL (130-400); WHITE BLOOD COUNT 5.7 10^3/uL (4.3-11.0)
[2023-02-11 20:16] LABS: INR 1.1 (0.8-1.4); PROTHROMBIN TIME PATIENT 14.7 SEC (12.2-14.7)
[2023-02-11] MEDS ORDERED: CEFU500T63 PO (20:33)
[2023-02-11 21:45] VITALS: BP 151/93
== END 2023-02-11 21:45 ==
LOC: EDUNIT# 19:32 → ER 19:33
DX: R04.0 Epistaxis (principal); J44.9 Chronic obstructive pulmonary disease, unspecified; Z79.02 Long term (current) use of antithrombotics/antiplatelets; Z79.82 Long term (current) use of aspirin; Z99.81 Dependence on supplemental oxygen
CPT/HCPCS: 36415; 85027; 85610; 85730